=== PATIENT | male | born 1965 | race Caucasian/White ===

== ENCOUNTER → 2016-12-30 | Outpatient (CLI) | payer OTHER ==
--- NOTE | 2016-12-30 08:11 | US ---
EXAMINATION TYPE: US liver DATE OF EXAM: 12/30/2016 7:21 AM COMPARISON: CT abdomen and pelvis October 16, 2015 CLINICAL HISTORY: Chronic Hepatitis B18.2. Cholecystectomy EXAM MEASUREMENTS: Liver Length: 19.9 cm Gallbladder Wall: Surgically absent CBD: 1.1 cm Right Kidney: 11.4 x 4.4 x 4.4 cm TECHNOLOGIST IMPRESSION: Pancreas: Obscured by overlying bowel gas Liver: enlarged, attenuating Gallbladder: Surgically absent CBD: dilated Right Kidney: no evidence of hydronephrosis or mass Pancreas is obscured by overlying bowel gas on single image saved. Visualized liver is heterogeneousl y hyperechoic in appearance without intrahepatic ductal dilatation. Evaluation for focal masses is li mited due to the heterogeneity. CBD 11 mm is minimally dilated for patient after cholecystectomy. Thi s is noted slightly more prominent versus CT measuring 6 mm on coronal image 41. Gallbladder surgical ly absent. No hydronephrosis is seen on limited images of right kidney. IMPRESSION: Heterogeneity of liver could reflect product of diffuse fatty infiltration or known under lying hepatocellular disease. There is new mild to minimal extrahepatic biliary dilatation noted. Nee d to further investigate by ERCP/MRCP should be based on clinical and lab correlation.
== END | disposition home or self-care (01) ==
LOC: RADUSWWP 07:02
PROVIDERS: ATTEND Internal Medicine Gastroenterology
DX: B18.2 Chronic viral hepatitis C (principal); K82.8 Other specified diseases of gallbladder
CPT/HCPCS: 76705

== ENCOUNTER 2017-06-14 16:41 | Inpatient (IN) | payer MEDICAID, OTHER ==
--- NOTE | 2017-06-14 17:16 | ED ---
General Adult HPI - General Chief complaint: Psychiatric Symptoms Stated complaint: Mental Health Time Seen by Provider: 06/14/17 16:51 Source: patient, EMS, RN notes reviewed, old records reviewed Mode of arrival: EMS Limitations: no limitations - History of Present Illness Initial comments: This is a 51-year-old male out of the ER for evaluation. Patient comes in for evaluation of psychiatric and mental health. Patient's petition by police for psychiatric evaluation and treatment, patient got a fight with girlfriend, significant other, [place] and attempted [place] then decided he no longer wanted to but does admit that he is still suicidal - Related Data Home Medications Medication Instructions Recorded Confirmed Lisinopril 40 mg PO BID 07/25/15 06/14/17 Previous Rx's Medication Instructions Recorded Acetaminophen Tab [Tylenol] 650 mg PO Q4HR PRN tab 06/18/17 Aspirin 81 mg PO DAILY 06/18/17 Carvedilol [Coreg] 3.125 mg PO BID-W/MEALS tab 06/18/17 Ibuprofen [Motrin] 800 mg PO TID PRN tab 06/18/17 Mag Hydrox/Al Hydrox/Simeth 30 ml PO Q4HR PRN dose 06/18/17 [Maalox] Magnesium Hydroxide [Milk of 2,400 mg PO DAILY PRN dose 06/18/17 Magnesia Concentrate] OLANZapine [ZyPREXA] 7.5 mg PO HS #14 tablet 06/18/17 cloNIDine HCL [Catapres] 0.1 mg PO TID #0 tab 06/18/17 Allergies Allergy/AdvReac Type Severity Reaction Status Date / Time No Known Allergies Allergy Verified 06/14/17 20:35 Review of Systems ROS Statement: Those systems with pertinent positive or pertinent negative responses have been documented in the HPI. ROS Other: All systems not noted in ROS Statement are negative. Past Medical History Past Medical History: Liver Disease, Myocardial Infarction (PR), Renal Disease Additional Past Medical History / Comment(s): 07/25/15 Pt presented to [facility] ER having taken a shower and then feeling dizzy and had L arm numbness and chest pain. He has hx of drug abuse and had used cocaine same day as admission. He had chest pain-L side and SOB and diaphoresis. Pt also states he has had R sided abdominal pain for about 1 1/2 weeks. He is being admitted with clinical impression of NSTEMI and cocaine abuse. Other HX: Pt states he had another PR with drug use in 2009 and was in [facility] for this. Pt has chronic back pain, spinal stenosis, DDD, sinusitis, Hepatitis C 2000-liver enzymes normal, peptic ulcer 1999, r kidney calculus x 2. Last Myocardial Infarction Date:: ?2009 History of Any Multi-Drug Resistant Organisms: None Reported Additional Past Surgical History / Comment(s): Partial r apical lobectomy for bleb at age 18 yrs. 2002 repair ligament LFA after self injury, 2013 Exploratory laparotomy removal foreign body after self injury, pain clinic procedures for back pain. Past Anesthesia/Blood Transfusion Reactions: No Reported Reaction Additional Past Anesthesia/Blood Transfusion Reaction / Comment(s): Pt states he has never received blood. Past Psychological History: Depression Smoking Status: Never smoker Past Alcohol Use History: Abuse Past Drug Use History: Cocaine, Heroin, Methamphetamine - Past Family History Father Family Medical History: COPD Additional Family Medical History / Comment(s): Father at 71 yrs of age. Mother Family Medical History: Cancer Additional Family Medical History / Comment(s): Mother had breast cancer with mets and of this at 67yrs of age. General Exam Limitations: no limitations General appearance: alert, in no apparent distress Head exam: Present: atraumatic, normocephalic, normal inspection Eye exam: Present: normal appearance, PERRL, EOMI. Absent: scleral icterus, conjunctival injection, periorbital swelling ENT exam: Present: normal exam, mucous membranes moist Neck exam: Present: normal inspection. Absent: tenderness, meningismus, lymphadenopathy Respiratory exam: Present: normal lung sounds bilaterally. Absent: respiratory distress, wheezes, rales, rhonchi, stridor Cardiovascular Exam: Present: regular rate, normal rhythm, normal heart sounds. Absent: systolic murmur, diastolic murmur, rubs, gallop, clicks GI/Abdominal exam: Present: soft, normal bowel sounds. Absent: distended, tenderness, guarding, rebound, rigid Extremities exam: Present: normal inspection, full ROM, normal capillary refill. Absent: tenderness, pedal edema, joint swelling, calf tenderness Back exam: Present: normal inspection Neurological exam: Present: alert, oriented X3, CN II-XII intact Psychiatric exam: Present: normal affect, normal mood Skin exam: Present: warm, dry, intact, normal color. Absent: rash Course Vital Signs 06/14/17 06/14/17 16:49 19:08 Temperature 96.9 F L 98.3 F Pulse Rate 69 68 Respiratory 20 16 Rate Blood Pressure 133/82 128/75 O2 Sat by Pulse 97 97 Oximetry - Reevaluation(s) Reevaluation #1: 06/14/17 17:33 Patient's medically clear for psychiatric evaluation Medical Decision Making - Medical Decision Making 51 male who is seen and evaluated with psychiatry, patient to be admitted for psychiatric evaluation and treatment - Lab Data Result diagrams: 06/15/17 08:44 06/15/17 08:44 Lab Results 06/14/17 Range/Units 16:51 Urine Opiates Screen Detected H (NotDetected) Ur Oxycodone Screen Not Detected (NotDetected) Urine Methadone Screen Not Detected (NotDetected) Ur Propoxyphene Screen Not Detected (NotDetected) Ur Barbiturates Screen Not Detected (NotDetected) U Tricyclic Antidepress Not Detected (NotDetected) Ur Phencyclidine Scrn Not Detected (NotDetected) Ur Amphetamines Screen Detected H (NotDetected) U Methamphetamines Scrn Detected H (NotDetected) U Benzodiazepines Scrn Detected H (NotDetected) Urine Cocaine Screen Detected H (NotDetected) U Marijuana (THC) Screen Not Detected (NotDetected) Disposition Clinical Impression: Cocaine abuse, Acute anxiety, Depression Disposition: TRANSFER TO PSYCH HOSP/UNIT Condition: Fair
[2017-06-14] MEDS ORDERED: MAG HYDROX/AL HYDROX/SIMETH 30 ML CUP PO PRN (20:23)
[2017-06-14] MEDS ORDERED: MAGNESIUM HYDROXIDE 2,400 MG/10 ML CUP PO PRN (20:23)
[2017-06-14] MEDS ORDERED: LORazepam 1 MG TAB PO PRN (20:23)
[2017-06-14] MEDS ORDERED: HYDROcodone/APAP 5-325MG 1 EACH TAB PO PRN (20:29)
[2017-06-14] MEDS ORDERED: LISINOPRIL 20 MG TAB PO SCH (21:00)
--- NOTE | 2017-06-14 22:02 | P.HPIM ---
History of Present Illness H&P Date: 06/14/17 Chief Complaint: Suicidal ideations 51 years old gentleman with history of polysubstance abuse with frequent suicidal ideations and attempts, hepatitis C and [place], who was brought to the ED after a suicidal attempt. He fought with his girlfriend and [place] to kill himself but he decided to come back, however continued to have suicidal thoughts. His last cocaine use was 2-3 days ago. He denied recent fevers, abdominal pain, coughing, falls or head trauma. He mentioned that he has been homeless for the past 4-5 days at least. He has not been taking his medications including his cardiac medications. In the ED, his vital signs were unremarkable, UDS was positive for opioids, amphetamines, benzos and cocaine. He was admitted to the psychiatric unit. Review of Systems Constitutional: Patient reports no fever, no chills, no weight changes, no change in appetite Eyes: Patient reports no double vision, no visual changes ENT: Patient reports no rhinorrhea, no post nasal drip, no sore throat Cardiovascular: Patient reports no chest, no edema, no palpitations, no syncope , no orthopnea, no paroxysmal nocturnal dyspnea. Respiratory: Patient reports no dyspnea, no cough, no wheeze Gastrointestinal: Patient reports no nausea, no vomiting, no constipation, no diarrhea Genitourinary: Patient reports no dysuria, no urinary frequency, no hematuria. Musculoskeletal: Patient reports right foot pain at the dorsal aspect for 2 weeks. Patient reports no muscular pain. Psychiatric: Patient reports suicidal ideations. Patient reports no changes in memory. Endocrine: Patient reports no thirst, no polyuria, no cold intolerance, no heat intolerance. Neurological: Patient reports no unusual paresthesias, no seizures, no paresis , no paralysis, no facila droop, no headache. Heme/Lymphatic: Patient reports no easy bruising, no bleeding tendency, no lymphadenopathy. Allergic/ Immunologic: Patient reports no recent allergic reactions or immunologic history. Skin: Patient reports no rashes or unusual lesions. Past Medical History Past Medical History: Liver Disease, Myocardial Infarction ([place]), Renal Disease Additional Past Medical History / Comment(s): 07/25/15 Pt presented to [facility] ER having taken a shower and then feeling dizzy and had L arm numbness and chest pain. He has hx of drug abuse and had used cocaine same day as admission. He had chest pain-L side and SOB and diaphoresis. Pt also states he has had R sided abdominal pain for about 1 1/2 weeks. He is being admitted with clinical impression of NSTEMI and cocaine abuse. Other HX: Pt states he had another [place] with drug use in 2008 and was in [facility] for this. Pt has chronic back pain, spinal stenosis, DDD, sinusitis, Hepatitis C 2000-liver enzymes normal, peptic ulcer 1999, r kidney calculus x 2. Ventral hernia. Diverticulosis. Systolic CHF with EF of 40-45%. Fatty liver. Hypertension Last Myocardial Infarction Date:: ?2008 History of Any Multi-Drug Resistant Organisms: None Reported Additional Past Surgical History / Comment(s): Partial r apical lobectomy for bleb at age 18 yrs. 2002 repair ligament LFA after self injury, 2013 Exploratory laparotomy removal foreign body after self injury, pain clinic procedures for back pain. Cholecystectomy Past Anesthesia/Blood Transfusion Reactions: No Reported Reaction Additional Past Anesthesia/Blood Transfusion Reaction / Comment(s): Pt states he has never received blood. Smoking Status: Never smoker - Past Family History Father Family Medical History: COPD Additional Family Medical History / Comment(s): Father at 71 yrs of age. Mother Family Medical History: Cancer Additional Family Medical History / Comment(s): Mother had breast cancer with mets and of this at 67yrs of age. Medications and Allergies Home Medications Medication Instructions Recorded Confirmed Type Lisinopril 40 mg PO BID 07/25/15 06/14/17 History ALPRAZolam [ALPRAZolam] 1 mg PO TID 10/16/15 06/14/17 History HYDROcodone/APAP 10-325MG [[place] 1 tab PO TID 06/14/17 06/14/17 History 10-325] Allergies Allergy/AdvReac Type Severity Reaction Status Date / Time No Known Allergies Allergy Verified 06/14/17 20:35 Physical Exam Vitals: Vital Signs Temp Pulse Pulse Resp BP BP Pulse Ox 06/14/17 19:40 98.5 F 62 16 120/76 06/14/17 19:08 98.3 F 68 16 128/75 97 06/14/17 16:49 96.9 F L 69 20 133/82 97 Intake and Output 09/02/17 09/02/17 09/02/17 06:59 14:59 22:59 Other: Weight 83 kg Patient Weight 06/15/17 06:59 Weight 83 kg Constitutional: No acute distress, conversant, pleasant Eyes: Anicteric sclerae, moist conjunctiva, no lid-lag PERRLA ENMT: NC/AT Oropharynx clear, no erythema, exudates Neck: Supple, FROM, no masses, or JVD No carotid bruits No thyromegaly Lungs: Clear to auscultation Clear to percussion Normal respiratory effort, no accessory muscle use Cardiovascular: Heart regular in rate and rhythm, No murmurs, gallops, or rubs No peripheral edema Abdominal: Soft Slight diffuse tenderness, no guarding, rebound or rigidity Abdomen moving with respiration Normoactive bowel sounds No hepatomegaly, No splenomegaly No palpable mass Skin: Normal temperature, tone, texture, turgor No induration No subcutaneous nodules No rash, lesions No ulcers Extremities: No digital cyanosis No clubbing Pedal pulses intact and symmetrical Radial pulses intact and symmetrical Normal gait and station Tenderness over the dorsum of the right foot with slight swelling without signs of cellulitis, patient however is able to walk but with limitations with putting weight on the right foot Psychiatric: Alert and oriented to person, place and time Appropriate affect Intact judgement Neuro: Muscles Strength 5/5 in all 4 extremities Sensation to light touch grossly present throughout Cranial nerves II-XII grossly intact No focal sensory deficits Results Labs: Abnormal Lab Results - Last 24 Hours (Table) 06/14/17 Range/Units 16:51 Urine Opiates Screen Detected H (NotDetected) Ur Amphetamines Screen Detected H (NotDetected) U Methamphetamines Scrn Detected H (NotDetected) U Benzodiazepines Scrn Detected H (NotDetected) Urine Cocaine Screen Detected H (NotDetected) Thrombosis Risk Factor Assmnt - DVT/VTE Prophylaxis DVT/VTE Prophylaxis: Pharmacologic Prophylaxis ordered - Choose All That Apply Each Factor Represents 1 point: Age 41-60 years, Obesity (BMI >25) Thrombosis Risk Factor Assessment Total Risk Factor Score: 2 Thrombosis Risk Factor Assessment Level: Low Risk Assessment and Plan Plan: #Depression and suicidal ideations -Management per the psych team -Recurrent problem -Awaiting UA, UDS as reported above -Pending TSH #Polysubstance abuse -Including cocaine, amphetamines mainly -Management deferred to the psych team -lineworker involvement would be recommended to help in providing resources for cessation -Patient was encouraged to stop polysubstance abuse -Patient is not currently in withdrawal #Right foot pain -At the dorsum, no recent falls, has been there for last 2 weeks, causing impaired walking -Pending x-ray -No signs of cellulitis -Pain control with [place] #Chronic back pain -Continue home [place] #Diffuse vague abdominal tenderness History of hepatitis C and fatty liver -No nausea or vomiting, but reported constipation -Bowel regimen -Defibrillator imaging for now, awaiting CBC and CMP -Reexamine the morning to reassess need for imaging #Myocardial infarction history, with EF of 40-45% and history of systolic CHF -Patient is not taking cardiac medications, however he mentioned that his physician put him on some medications -I started him on aspirin, Coreg, he is not on diuretics -No ACS or signs of decompensated heart failure currently #Essential hypertension -Currently not in hypertensive urgency -He is on lisinopril 40 mg at home but he is not taking it -Started lisinopril 5 mg as his blood pressure is in the 120s #Social status and placement -Recommend social services aide consult -Patient is currently homeless Code is full code DVT prophylaxis with subcu heparin Time with Patient: Greater than 30
[2017-06-14] MEDS: HYDROcodone/APAP 5-325MG 1 EACH TAB PO SCH (22:59)
[2017-06-14] MEDS: ASPIRIN 81 MG CHEW PO SCH (22:59)
--- NOTE | 2017-06-15 07:26 | XR ---
EXAMINATION TYPE: XR foot limited RT DATE OF EXAM: 06/14/2017 CLINICAL HISTORY: Right foot pain. TECHNIQUE: Frontal and lateral images of the right foot are obtained. COMPARISON: None FINDINGS: There is no acute fracture/dislocation evident in the right foot. Flexion or hammertoe typ e appearance of toes is noted. There is small superior calcaneal spur. The joint spaces in the right foot appear within normal limits. The overlying soft tissue appears unremarkable. IMPRESSION: There is flexion in toes and small superior calcaneal spur noted.
[2017-06-15] MEDS ORDERED: HEPARIN SODIUM,PORCINE 5,000 UNIT/ML 1 ML VIAL SQ SCH (08:00)
[2017-06-15] MEDS: ASPIRIN 81 MG CHEW PO SCH (08:18)
[2017-06-15] MEDS: CARVEDILOL 3.125 MG TAB PO SCH ×2 (08:18→18:07)
[2017-06-15] MEDS: HYDROcodone/APAP 5-325MG 1 EACH TAB PO SCH (08:46)
[2017-06-15] MEDS ORDERED: LISINOPRIL 5 MG TAB PO SCH (09:00)
[2017-06-15 09:16] LABS: Basophils % (A) 0 %; CH 32.5; CHCM 34.8; Eosinophils # (A) 0.2 k/uL (0-0.7); Eosinophils % (A) 2 %; HCT 43.8 % (39.0-53.0); HDW 2.89; HGB 15.3 gm/dL (13.0-17.5); Luc # (Auto) 0.16; Luc % (Auto) 2; Lymphocytes # (A) 2.2 k/uL (1.0-4.8); Lymphocytes % (A) 30 %; MCH 32.9 pg (25.0-35.0); Mean Platelet Volume 7.6; Monocytes # (A) 0.3 k/uL (0-1.0); Monocytes % (A) 4 %; Neutrophils # (A) 4.6 k/uL (1.3-7.7); Neutrophils % (A) 62 %; RBC 4.66 m/uL (4.30-5.90); RDW 12.7 % (11.5-15.5); WBC 7.5 k/uL (3.8-10.6); WBC (Perox) 7.44
[2017-06-15 09:28] LABS: ALT 102 U/L (21-72); AST 99 U/L (17-59); Alkaline Phosphatase 81 U/L (38-126); Anion Gap 10 mmol/L; Bilirubin, Delta 0.3 mg/dL (0.0-0.2); Blood Urea Nitrogen 19 mg/dL (9-20); Calcium 9.4 mg/dL (8.4-10.2); Carbon Dioxide 26 mmol/L (22-30); Chloride 106 mmol/L (98-107); Glucose 203 mg/dL (74-99); Non-African American GFR(MDRD) >60 (>60 ml/min/1.73 sqM); Potassium 4.7 mmol/L (3.5-5.1); Sodium 142 mmol/L (137-145); Total Bilirubin 0.9 mg/dL (0.2-1.3); Total Protein 6.9 g/dL (6.3-8.2)
[2017-06-15] MEDS: ACETAMINOPHEN TAB 325 MG TAB PO PRN (12:35)
[2017-06-15] MEDS: cloNIDine HCL 0.1 MG TAB PO SCH ×3 (12:36→21:44)
[2017-06-15] MEDS: OLANZapine 5 MG TAB PO SCH ×2 (15:34→21:44)
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
[2017-06-16] MEDS: OLANZapine 5 MG TAB PO SCH ×3 (09:05→21:08)
[2017-06-16] MEDS: CARVEDILOL 3.125 MG TAB PO SCH ×2 (09:05→17:06)
[2017-06-16] MEDS: ASPIRIN 81 MG CHEW PO SCH (09:05)
[2017-06-16] MEDS: cloNIDine HCL 0.1 MG TAB PO SCH ×3 (09:05→21:42)
[2017-06-16] MEDS: ACETAMINOPHEN TAB 325 MG TAB PO PRN ×2 (09:41→16:18)
[2017-06-16 11:18] LABS: Appearance,Urine Clear (Clear); Bilirubin,Urine Negative (Negative); Glucose,Urine (UA) Trace (Negative); Ketones,Urine Negative (Negative); Leukocyte Esterase,Urine Negative (Negative); Nitrite,Urine Negative (Negative); Protein,Urine Trace (Negative); Specific Gravity,Urine 1.026 (1.001-1.035); UA Billing (MACRO vs. MICRO) CHEM; Urobilinogen,Urine <2.0 mg/dL (<2.0)
[2017-06-16] MEDS: IBUPROFEN 800 MG TAB PO PRN (13:08)
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
[2017-06-17] MEDS: ASPIRIN 81 MG CHEW PO SCH (08:15)
[2017-06-17] MEDS: CARVEDILOL 3.125 MG TAB PO SCH ×2 (08:16→17:20)
[2017-06-17] MEDS: cloNIDine HCL 0.1 MG TAB PO SCH ×3 (08:16→21:22)
[2017-06-17] MEDS: IBUPROFEN 800 MG TAB PO PRN ×2 (08:17→15:18)
[2017-06-17] MEDS: OLANZapine 5 MG TAB PO SCH ×2 (08:45→15:18)
[2017-06-17] MEDS: ACETAMINOPHEN TAB 325 MG TAB PO PRN (17:21)
--- NOTE | 2017-06-17 20:48 | P.PN ---
Subjective Principal diagnosis: 1. Suicide attempt, aborted 2. Stimulant use disorder, cocaine and methamphetamine type severe Patient is a 51-year-old male who presents to the hospital after an aborted suicide attempt with plan to drown himself in a local river. Patient states that he put his body in the water up to his torso and then "chickened out " and contacted local police asking for help. Patient admits to being intoxicated on cocaine and methamphetamines at the time of the event and had recently had a fight with his ex-. Today patient is engaged during interview and has planned to discharge to rehab although he is uncertain where and is considering both local options and a facility [id number] in [place]. Patient states that he regrets his actions and has no desire to kill himself today. Patient admits to 1 prior hospitalization with similar SA where he was also intoxicated on cocaine and methamphetamines which he has done on-and-off for the last 10 years with the longest period of sobriety of 20 months while he was on probation. Patient's plan is discharge home to live with his friend and friend's boyfriend whom he has known for the last 4 years prior to going to rehab. At this time patient denies suicidal ideations, homicidal ideations, auditory or visual hallucinations, and exhibits no signs of psychosis or maris. At conclusion of interview patient reported that he is scheduled for outpatient surgery on June 19, review of his medical record is significant for a bone spur that was diagnosed by x-ray during this hospital course. Objective - Vital Signs Vital signs: Vital Signs Temp 97.9 F 06/17/17 06:59 Pulse 58 L 06/17/17 17:20 Resp 16 06/17/17 17:20 BP 123/84 06/17/17 17:20 Pulse Ox 97 06/14/17 19:08 - Psychiatric Psychiatric Comment(s): MENTAL STATUS EXAM: Appearance: Alert, well-groomed, dressed in appropriate garb for unit, steady gait Behavior: No psychomotor agitation or psychomotor retardation, fair eye contact Attitude: Cooperative Speech: Normal rate, rhythm, articulation, and fluency; primary language: Polish Mood: Euthymic (pretty good) Affect: Appropriate, mood congruent, full range Thought processes: Linear, organized Thought content: Patient does not appear to be responding to internal stimuli, patient denies auditory and visual hallucinations, no signs of overt psychosis Insight: Fair Judgment: Historically poor at present fair to good Cognitive: Oriented to all 4 spheres - Labs CBC & Chem 7: 06/15/17 08:44 06/15/17 08:44 Assessment and Plan Plan: ASSESSMENT: 1. Suicide attempt, aborted 2. Stimulant use disorder methamphetamine and cocaine, severe PLAN: 1. Continue hospitalization 2. Decrease Zyprexa to 7.5 mg by mouth every daily at bedtime 3. Contact family to assess the viability of patient flying to [place] to attend [facility] for inpatient rehab
[2017-06-17] MEDS ORDERED: OLANZapine 2.5 MG TAB PO SCH (21:00)
[2017-06-18 07:19] VITALS: BP 106/56; PULSE 51; RESP 16; TEMP 98.8
[2017-06-18] MEDS: ASPIRIN 81 MG CHEW PO SCH (08:47)
[2017-06-18] MEDS: IBUPROFEN 800 MG TAB PO PRN (08:47)
[2017-06-18] MEDS: cloNIDine HCL 0.1 MG TAB PO SCH (08:47)
[2017-06-18] MEDS: CARVEDILOL 3.125 MG TAB PO SCH (08:48)
== END 2017-06-18 14:57 | disposition home or self-care (01) | DRG 885 ==
LOC: EC 16:41 → 3MHU 18:38
PROVIDERS: ADMIT Psychiatry & Neurology Psychiatry; ATTEND Psychiatry & Neurology Psychiatry
DX: F33.2 Major depressive disorder, recurrent severe without psychotic features (principal); I11.0 Hypertensive heart disease with heart failure; R45.851 Suicidal ideations; I50.22 Chronic systolic (congestive) heart failure; F11.23 Opioid dependence with withdrawal; M79.671 Pain in right foot; F14.10 Cocaine abuse, uncomplicated; F43.10 Post-traumatic stress disorder, unspecified; G89.29 Other chronic pain; I25.2 Old myocardial infarction; K59.00 Constipation, unspecified; K76.0 Fatty (change of) liver, not elsewhere classified; M77.9 Enthesopathy, unspecified; Z59.0 Homelessness; Z79.82 Long term (current) use of aspirin; Z79.899 Other long term (current) drug therapy; Z81.1 Family history of alcohol abuse and dependence; Z87.11 Personal history of peptic ulcer disease; Z87.442 Personal history of urinary calculi; M54.9 Dorsalgia, unspecified
CPT/HCPCS: 80053; 80306; 81003; 82075; 82248; 83690; 84439; 84443; 84481; 85025; 99285

== ENCOUNTER 2017-06-25 21:31 | Emergency (ER) | payer OTHER ==
--- NOTE | 2017-06-25 21:41 | ED ---
Alcohol HPI - General Stated Complaint: ETOH Time Seen by Provider: 06/25/17 21:33 Source: patient, EMS Mode of arrival: EMS Limitations: altered mental status - History of Present Illness Initial Comments: This patient is a 51-year-old man brought to be valid for alcohol intoxication. Patient was reportedly found extremely intoxicated in public. When first responders arrived he appeared very intoxicated and cannot be left alone. The patient denies recent trauma. He denies any complaints. He states that he drinks "a lot." MD Complaint: alcohol intoxication Last Drink: just [employer] Recent Trauma: No Associated Symptoms: denies other symptoms Treatments Prior to Arrival: none Chronic Alcohol Use: Yes - Related Data Home Medications Medication Instructions Recorded Confirmed Lisinopril 40 mg PO BID 07/25/15 06/25/17 Previous Rx's Medication Instructions Recorded Acetaminophen Tab [Tylenol] 650 mg PO Q4HR PRN tab 06/18/17 Aspirin 81 mg PO DAILY 06/18/17 Carvedilol [Coreg] 3.125 mg PO BID-W/MEALS tab 06/18/17 Ibuprofen [Motrin] 800 mg PO TID PRN tab 06/18/17 Mag Hydrox/Al Hydrox/Simeth 30 ml PO Q4HR PRN dose 06/18/17 [Maalox] Magnesium Hydroxide [Milk of 2,400 mg PO DAILY PRN dose 06/18/17 Magnesia Concentrate] OLANZapine [ZyPREXA] 7.5 mg PO HS #14 tablet 06/18/17 cloNIDine HCL [Catapres] 0.1 mg PO TID #0 tab 06/18/17 Allergies Allergy/AdvReac Type Severity Reaction Status Date / Time No Known Allergies Allergy Verified 06/25/17 21:40 Review of Systems ROS Statement: Those systems with pertinent positive or pertinent negative responses have been documented in the HPI. ROS Other: All systems not noted in ROS Statement are negative. Respiratory: Denies: cough, dyspnea Cardiovascular: Denies: chest pain, palpitations Gastrointestinal: Denies: abdominal pain, vomiting, diarrhea Musculoskeletal: Denies: back pain Neurological: Denies: headache Past Medical History Past Medical History: Liver Disease, Myocardial Infarction (DC), Renal Disease Additional Past Medical History / Comment(s): 07/25/15 Pt presented to [facility] ER having taken a shower and then feeling dizzy and had L arm numbness and chest pain. He has hx of drug abuse and had used cocaine same day as admission. He had chest pain-L side and SOB and diaphoresis. Pt also states he has had R sided abdominal pain for about 1 1/2 weeks. He is being admitted with clinical impression of NSTEMI and cocaine abuse. Other HX: Pt states he had another DC with drug use in 2008 and was in [facility] for this. Pt has chronic back pain, spinal stenosis, DDD, sinusitis, Hepatitis C 2000-liver enzymes normal, peptic ulcer 1999, r kidney calculus x 2. Last Myocardial Infarction Date:: ?2008 History of Any Multi-Drug Resistant Organisms: None Reported Additional Past Surgical History / Comment(s): Partial r apical lobectomy for bleb at age 18 yrs. 2002 repair ligament LFA after self injury, 2013 Exploratory laparotomy removal foreign body after self injury, pain clinic procedures for back pain. Past Anesthesia/Blood Transfusion Reactions: No Reported Reaction Additional Past Anesthesia/Blood Transfusion Reaction / Comment(s): Pt states he has never received blood. Past Psychological History: Depression Smoking Status: Never smoker Past Alcohol Use History: Abuse Past Drug Use History: Cocaine, Heroin, Methamphetamine - Past Family History Father Family Medical History: COPD Additional Family Medical History / Comment(s): Father at 71 yrs of age. Mother Family Medical History: Cancer Additional Family Medical History / Comment(s): Mother had breast cancer with mets and of this at 67yrs of age. General Exam General appearance: alert, in no apparent distress, appears intoxicated Head exam: Present: atraumatic, normocephalic Eye exam: Present: normal appearance, PERRL, EOMI, nystagmus. Absent: scleral icterus, conjunctival injection Neck exam: Present: normal inspection, full ROM. Absent: tenderness Respiratory exam: Present: normal lung sounds bilaterally. Absent: respiratory distress, wheezes, rales, rhonchi, stridor Cardiovascular Exam: Present: regular rate, normal rhythm, normal heart sounds. Absent: systolic murmur, diastolic murmur, rubs, gallop GI/Abdominal exam: Present: soft. Absent: tenderness, guarding, rebound, rigid Back exam: Present: normal inspection. Absent: vertebral tenderness Neurological exam: Present: alert, other (Mild dysarthria and mild ataxia). Absent: motor sensory deficit Skin exam: Present: warm, dry, intact, normal color. Absent: rash Course Vital Signs 06/25/17 21:33 Temperature 97.0 F L Pulse Rate 83 Respiratory 16 Rate Blood Pressure 125/85 O2 Sat by Pulse 96 Oximetry Procedures - Restraint - Face to Face Restraint Occurrence 1 Patient's Immediate Situation: Endangers self safety, Endangers staff safety Patient's Reaction to the Intervention: Belligerent, Suspicious Need to Continue or Terminate Restraint or Seclusion: Continue Face to Face Eval of Restraint Date: 06/25/17 Face to Face Eval of Restraint Time: 22:10 Disposition Clinical Impression: Alcoholic intoxication Disposition: HOME SELF-CARE Condition: Fair Instructions: Alcohol Intoxication (ED) Referrals: None,Stated [Primary Care Provider] - 1-2 days
[2017-06-26 05:12] VITALS: BP 139/83; PULSE 72; RESP 18; TEMP 97.9
== END 2017-06-26 05:11 | disposition home or self-care (01) ==
LOC: EC 21:31
DX: F10.129 Alcohol abuse with intoxication, unspecified (principal); H55.00 Unspecified nystagmus; I25.2 Old myocardial infarction; Z79.899 Other long term (current) drug therapy
CPT/HCPCS: 82075; 99285

== ENCOUNTER 2017-06-27 00:58 | Emergency (ER) | payer OTHER ==
--- NOTE | 2017-06-27 02:24 | ED ---
General Adult HPI - General Chief complaint: Alcohol Stated complaint: revisit-detox Time Seen by Provider: 06/27/17 01:35 Source: patient, RN notes reviewed, old records reviewed Mode of arrival: ambulatory Limitations: no limitations - History of Present Illness Initial comments: This is a 51-year-old male presents emergency Department chief complaint of needing help with detox. He reports that he states he needs to be back on his psychiatric medications. He states that he has been off of them for the past 2 weeks. He reports that he was kicked out of his house by his 2 weeks ago. He states these been on the street, drinking alcohol and using crack cocaine. Patient reports that her last use of cocaine was at 9 PM. He last drink 10 PM. Patient states that today he did fall on his lower back. Denies any injuries to his head or neck. Patient reports that he is here searching for some help and resources to get back on the right path. Patient states that earlier should he did have some suicidal thoughts. - Related Data Previous Rx's Medication Instructions Recorded chlordiazePOXIDE HCl [Librium] 10 mg PO TID #10 capsule 06/27/17 Allergies Allergy/AdvReac Type Severity Reaction Status Date / Time No Known Allergies Allergy Verified 06/27/17 01:04 Review of Systems ROS Statement: Those systems with pertinent positive or pertinent negative responses have been documented in the HPI. ROS Other: All systems not noted in ROS Statement are negative. Past Medical History Past Medical History: Liver Disease, Myocardial Infarction ([place]), Renal Disease Additional Past Medical History / Comment(s): 07/25/15 Pt presented to [facility] ER having taken a shower and then feeling dizzy and had L arm numbness and chest pain. He has hx of drug abuse and had used cocaine same day as admission. He had chest pain-L side and SOB and diaphoresis. Pt also states he has had R sided abdominal pain for about 1 1/2 weeks. He is being admitted with clinical impression of NSTEMI and cocaine abuse. Other HX: Pt states he had another [place] with drug use in 2008 and was in [facility] for this. Pt has chronic back pain, spinal stenosis, DDD, sinusitis, Hepatitis C 2000-liver enzymes normal, peptic ulcer 1999, r kidney calculus x 2. Last Myocardial Infarction Date:: ?2008 History of Any Multi-Drug Resistant Organisms: None Reported Additional Past Surgical History / Comment(s): Partial r apical lobectomy for bleb at age 18 yrs. 2002 repair ligament LFA after self injury, 2013 Exploratory laparotomy removal foreign body after self injury, pain clinic procedures for back pain. Past Anesthesia/Blood Transfusion Reactions: No Reported Reaction Additional Past Anesthesia/Blood Transfusion Reaction / Comment(s): Pt states he has never received blood. Past Psychological History: Depression Smoking Status: Never smoker Past Alcohol Use History: Abuse, Daily Past Drug Use History: Cocaine, Heroin, Methamphetamine - Past Family History Father Family Medical History: COPD Additional Family Medical History / Comment(s): Father at 71 yrs of age. Mother Family Medical History: Cancer Additional Family Medical History / Comment(s): Mother had breast cancer with mets and of this at 67yrs of age. General Exam - General Exam Comments Initial Comments: 51-year-old male. No distress. Limitations: no limitations General appearance: alert, in no apparent distress Head exam: Present: atraumatic, normocephalic, normal inspection Eye exam: Present: normal appearance, PERRL, EOMI. Absent: scleral icterus, conjunctival injection, periorbital swelling ENT exam: Present: normal exam, mucous membranes moist Neck exam: Present: normal inspection Respiratory exam: Present: normal lung sounds bilaterally. Absent: respiratory distress, wheezes, rales, rhonchi, stridor Cardiovascular Exam: Present: regular rate, normal rhythm, normal heart sounds. Absent: systolic murmur, diastolic murmur, rubs, gallop, clicks GI/Abdominal exam: Present: soft, normal bowel sounds. Absent: distended, tenderness, guarding, rebound, rigid Extremities exam: Present: normal inspection, full ROM, normal capillary refill. Absent: tenderness, pedal edema, joint swelling, calf tenderness Back exam: Present: normal inspection Course Vital Signs 06/27/17 06/27/17 01:02 04:54 Temperature 98.8 F 97.9 F Pulse Rate 74 95 Respiratory 20 18 Rate Blood Pressure 167/100 130/91 O2 Sat by Pulse 97 98 Oximetry Medical Decision Making - Medical Decision Making 51-year-old male seeking help for drug and alcohol abuse. Patient's blood alcohol level is 0 at this time. Patient actively going through withdrawals. Patient reports he is currently homeless. He states that he would like to speak to the psyche after services, patient feels like he needs to get restarted on his medications. He reports that he has been homeless for 2 weeks. Patient is medically clear for EPS, he did say that he fell on his lower back. Lumbar spine x-ray was obtained and 8 for any acute process. Patient was evaluated by EPS. EPS feels comfortable discharging the patient. Patient was given a referral for outpatient psychiatric services. Patient agrees treatment plan will comply. Return parameters were discussed. - Lab Data Lab Results 06/27/17 Range/Units 02:45 Urine Opiates Screen Not Detected (NotDetected) Ur Oxycodone Screen Not Detected (NotDetected) Urine Methadone Screen Not Detected (NotDetected) Ur Propoxyphene Screen Not Detected (NotDetected) Ur Barbiturates Screen Not Detected (NotDetected) U Tricyclic Antidepress Not Detected (NotDetected) Ur Phencyclidine Scrn Not Detected (NotDetected) Ur Amphetamines Screen Not Detected (NotDetected) U Methamphetamines Scrn Not Detected (NotDetected) U Benzodiazepines Scrn Not Detected (NotDetected) Urine Cocaine Screen Detected H (NotDetected) U Marijuana (THC) Screen Not Detected (NotDetected) Disposition Clinical Impression: Cocaine use, Alcohol abuse Disposition: HOME SELF-CARE Condition: Good Instructions: Alcohol Withdrawal (ED) Additional Instructions: Patient advised to use the medication to help with alcohol withdrawal. Follow- up with all the outpatient services provided. Return to the emergency department if any alarming signs or symptoms occur. Prescriptions: chlordiazePOXIDE HCl [Librium] 10 mg PO TID #10 capsule Referrals: Nonstaff,Physician [Primary Care Provider] - 1-2 days Yesenia Bergeron MD [STAFF PHYSICIAN] - 1-2 days Time of Disposition: 04:34
--- NOTE | 2017-06-27 02:28 | XR ---
EXAM: XR Lumbar Spine, 2 or 3 Views CLINICAL HISTORY: Pain TECHNIQUE: Frontal and lateral views of the lumbar spine. COMPARISON: No relevant prior studies available. FINDINGS: Vertebrae: No acute fracture or traumatic malalignment of the lumbar spine. Disc spaces: Mild degenerative changes. Soft tissues: Unremarkable. Other findings: Evidence of prior cholecystectomy. IMPRESSION: No acute findings.
[2017-06-27 04:55] VITALS: BP 130/91; PULSE 95; RESP 18; TEMP 97.9
== END 2017-06-27 04:55 | disposition home or self-care (01) ==
LOC: EC 00:58
DX: F14.90 Cocaine use, unspecified, uncomplicated (principal); F10.10 Alcohol abuse, uncomplicated; Z59.0 Homelessness; W19.XXXA Unspecified fall, initial encounter
CPT/HCPCS: 72100; 80306; 82075; 99284

== ENCOUNTER 2019-08-18 09:44 | Observation (INO) | payer OTHER ==
[2019-08-18] MEDS ORDERED: SODIUM CHLORIDE 0.9% 1,000 ML IV STA ×2 (10:19)
[2019-08-18] MEDS ORDERED: ASPIRIN 81 MG PO STA (10:19)
--- NOTE | 2019-08-18 10:53 | XR ---
EXAMINATION TYPE: XR chest 2V DATE OF EXAM: 08/18/2019 COMPARISON: 07/25/2015 HISTORY: Shortness of breath TECHNIQUE: Frontal and lateral views of the chest are obtained. FINDINGS: Scattered senescent parenchymal changes noted. Hyperinflation compatible with COPD. No evidence for infiltrate. No evidence for atelectasis. Heart size is stable. Mediastinal structures are stable and grossly unremarkable. No evidence for hilar prominence. Degenerative changes dorsal spine. IMPRESSION: 1. No evidence for acute pulmonary disease.
[2019-08-18 10:57] LABS: Basophils % (A) 0 %; Eosinophils # (A) 0.1 k/uL (0-0.7); Eosinophils % (A) 1 %; HCT 39.9 % (39.0-53.0); HGB 14.2 gm/dL (13.0-17.5); Lymphocytes # (A) 2.3 k/uL (1.0-4.8); Lymphocytes % (A) 25 %; MCH 32.1 pg (25.0-35.0); MCHC 35.6 g/dL (31.0-37.0); MCV 90.1 fL (80.0-100.0); Mean Platelet Volume 7.5; Monocytes # (A) 0.3 k/uL (0-1.0); Monocytes % (A) 4 %; Neutrophils # (A) 6.3 k/uL (1.3-7.7); Neutrophils % (A) 69 %; Platelet Count 121 k/uL (150-450); RBC 4.43 m/uL (4.30-5.90); RDW 12.8 % (11.5-15.5); WBC 9.2 k/uL (3.8-10.6)
--- NOTE | 2019-08-18 10:59 | ED ---
Chest Pain HPI - General Chief Complaint: Chest Pain Stated Complaint: chest pain Time Seen by Provider: 08/18/19 10:19 Source: patient, RN notes reviewed, old records reviewed Mode of arrival: ambulatory Limitations: no limitations - History of Present Illness Initial Comments: Patient is a 54-year-old male with a history of previous drug abuse, who pr esents today with chief complaint of intermittent chest pain for the past week. Today he had 3 episodes and one when she was diaphoretic and complained of some dizziness at that time. He reports that he was walking around when this occurred. Patient states that he is a nonsmoker at this time and he is been clean from drugs for the past 2 years. Patient reports that he has history of hypertension, hyperlipidemia, and diabetes. - Related Data Home Medications Medication Instructions Recorded Confirmed Diclofenac Sodium [Voltaren] 75 mg PO DAILY 08/18/19 08/18/19 Lisinopril 40 mg PO DAILY 08/18/19 08/18/19 Montelukast [Singulair] 10 mg PO DAILY 08/18/19 08/18/19 amLODIPine [Norvasc] 5 mg PO HS 08/18/19 08/18/19 metFORMIN HCL 1,000 mg PO BID 08/18/19 08/18/19 Allergies Allergy/AdvReac Type Severity Reaction Status Date / Time No Known Allergies Allergy Verified 08/18/19 12:05 Review of Systems ROS Statement: Those systems with pertinent positive or pertinent negative responses have been documented in the HPI. ROS Other: All systems not noted in ROS Statement are negative. EKG Findings - EKG Comments: EKG Findings:: EKG performed at 10:06 AM shows a normal sinus rhythm moderate voltage criteria for LVH which may be normal variant. Borderline EKG. Ventricular rate of 71 bpm period. VT interval 174 ms. QS duration is 102 ms. QT QTc is 394/420 ms. Past Medical History Past Medical History: Diabetes Mellitus, Liver Disease, Myocardial Infarction ([place]), Renal Disease Additional Past Medical History / Comment(s): 07/25/15 Pt presented to [facility] ER having taken a shower and then feeling dizzy and had L arm numbness and chest pain. He has hx of drug abuse and had used cocaine same day as admission. He had chest pain-L side and SOB and diaphoresis. Pt also states he has had R sided abdominal pain for about 1 1/2 weeks. He is being admitted with clinical impression of NSTEMI and cocaine abuse. Other HX: Pt states he had another [place] with drug use in 2009 and was in [facility] for this. Pt has chronic back pain, spinal stenosis, DDD, sinusitis, Hepatitis C 2000-liver enzymes normal, peptic ulcer 1999, r kidney calculus x 2. Last Myocardial Infarction Date:: ?2008 History of Any Multi-Drug Resistant Organisms: None Reported Additional Past Surgical History / Comment(s): Partial r apical lobectomy for bleb at age 18 yrs. 2002 repair ligament LFA after self injury, 2013 Exploratory laparotomy removal foreign body after self injury, pain clinic procedures for back pain. Past Anesthesia/Blood Transfusion Reactions: No Reported Reaction Additional Past Anesthesia/Blood Transfusion Reaction / Comment(s): Pt states he has never received blood. Past Psychological History: Depression Smoking Status: Never smoker Past Alcohol Use History: None Reported, Abuse Past Drug Use History: None Reported, Cocaine, Heroin, Methamphetamine - Past Family History Father Family Medical History: COPD Additional Family Medical History / Comment(s): Father at 71 yrs of age. Mother Family Medical History: Cancer Additional Family Medical History / Comment(s): Mother had breast cancer with mets and of this at 67yrs of age. General Exam - General Exam Comments Initial Comments: 54-year-old male. Alert and oriented. No distress. General: Well appearing, well nourished, in no distress. Oriented x 3, normal mood and affect . Ambulating without difficulty. Skin: Good turgor, no rash, unusual bruising or prominent lesions Hair: Normal texture and distribution. HEENT: Head: Normocephalic, atraumatic, no visible or palpable masses, depressions, or scaring. Eyes: Visual acuity intact, conjunctiva clear, sclera non-icteric, EOM intact, PERRL. Ears: EACs clear, TMs translucent & cone of light visualized. hearing intact. Nose: No external lesions, mucosa non-inflamed, septum and turbinates normal Mouth: Mucous membranes moist, no mucosal lesions. Teeth/Gums: No obvious caries or periodontal disease. No gingival inflammation or significant resorption. Pharynx: Mucosa non-inflamed, no tonsillar hypertrophy or exudate Neck: Supple, without lesions, bruits, or adenopathy, thyroid non-enlarged and non-tender Heart: No cardiomegaly or thrills; regular rate and rhythm, no murmur or gallop Lungs: Clear to auscultation and percussion Abdomen: Bowel sounds normal, no tenderness, organomegaly, masses, or hernia Back: Spine normal without deformity or tenderness, no CVA tenderness Extremities: No amputations or deformities, cyanosis, edema or varicosities, peripheral pulses intact Musculoskeletal: Normal gait and station. No misalignment, asymmetry, crepitation, defects, tenderness, masses, effusions, decreased range of motion, instability, atrophy or abnormal strength or tone in the head, neck, spine, ribs, pelvis or extremities. Neurologic: CN 2-12 normal. Sensation to pain, touch, and proprioception normal. DTRs normal in upper and lower extremities. No pathologic reflexes. Limitations: no limitations General appearance: alert, in no apparent distress Course Vital Signs 08/18/19 09:49 Temperature 97.8 F Pulse Rate 72 Respiratory 18 Rate Blood Pressure 156/99 O2 Sat by Pulse 97 Oximetry Chest Pain MDM - MDM Is a 54-year-old male with history of hypertension hyperlipidemia, diabetes. He presents today for concern for chest discomfort with 3 episodes. He reports he was diaphoretic during that time and short of breath on exertion. He hasn't had a cardiac cath in over 5 years. 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 At this time Patient EKG shows no acute changes. Initial troponin test is negative. On reevaluation he states he has no further pain. He was given aspirin emergency department. I discussed the Patient will be admitted for cardiac observation. Disposition Clinical Impression: Unstable angina, Hypertension, Diabetes Disposition: ADMITTED IP TO THIS HOSP Condition: Stable Is patient prescribed a controlled substance at d/c from ED?: No Referrals: Sadiq Lopez MD [Primary Care Provider] - 1-2 days Time of Disposition: 12:21
[2019-08-18 11:09] LABS: INR 1.1 (<1.2); Partial Thromboplastin Time 22.8 sec (22.0-30.0); Prothrombin Time 11.2 sec (9.0-12.0)
[2019-08-18 11:32] LABS: ALT 165 U/L (21-72); AST 88 U/L (17-59); African American GFR (CKD) >90 (>60 ml/min/1.73 sqM); Albumin 3.9 g/dL (3.5-5.0); Alkaline Phosphatase 147 U/L (38-126); Anion Gap 10 mmol/L; Blood Urea Nitrogen 19 mg/dL (9-20); Calcium 9.6 mg/dL (8.4-10.2); Carbon Dioxide 19 mmol/L (22-30); Chloride 112 mmol/L (98-107); Glucose 174 mg/dL (74-99); Magnesium 1.9 mg/dL (1.6-2.3); Non-African American GFR(CKD) >90 (>60 ml/min/1.73 sqM); Potassium 3.9 mmol/L (3.5-5.1); Sodium 141 mmol/L (137-145); Total Bilirubin 0.8 mg/dL (0.2-1.3); Total Protein 7.2 g/dL (6.3-8.2)
[2019-08-18] MEDS ORDERED: NITROGLYCERIN SL TABS 0.4 MG TAB SUBLINGUAL PRN (12:22)
[2019-08-18 16:36] LABS: Glucose,Whole Blood 146 mg/dL (75-99)
[2019-08-18] MEDS: FAMOTIDINE 20 MG TAB PO SCH ×2 (16:37→20:55)
[2019-08-18] MEDS: INSULIN ASPART (NovoLOG) 100 UNIT/ML VIAL SQ SCH ×2 (18:05→20:56)
[2019-08-18 20:24] LABS: Glucose,Whole Blood 145 mg/dL (75-99)
[2019-08-18] MEDS: LISINOPRIL 20 MG TAB PO SCH (20:55)
[2019-08-18] MEDS ORDERED: amLODIPine 5 MG TAB PO SCH (21:00)
--- NOTE | 2019-08-18 23:25 | P.HPIM ---
History of Present Illness H&P Date: 08/18/19 Chief Complaint: Chest pain Patient is a 54-year-old male with a known history of hypertension, diabetes type 2 [id number], history of hepatitis C status post treatment 2 years back, previous history of polysubstance abuse (has been clean for the past 2 years) , history of [place] and renal stones and multiple other medical problems came to ER with complaints of intermittent chest pain for the past 1 week. Chest pain is mainly left retrosternal below pectoralis margin. Patient has been experiencing sharp pains for the past 1 week lasting about 1-2 minutes. Today while he was at work she developed chest pain again and felt diaphoretic and dizzy. Associated with some nausea. No vomiting. No radiation of the pain down the arm. Patient says that she also had elevated blood pressures at that time. Due to the above symptoms patient presented to ER for further evaluation. Denied any pain associated with food intake. history of peptic ulcer disease in the past. Denied any fever or chills. No cough or sputum production. No recent illness. Patient has been taking Motrin on daily basis recently due to spurs in the foot and is out of his prescribed medication diclofenac sodium. Yesterday patient had intra-articular steroid injection to the foot. EKG showed normal sinus rhythm Chest x-ray showed no acute cardiopulmonary process. AST ALT and alk phos slightly elevated. Patient otherwise denied any right upper quadrant pain. Troponin 3 negative. Review of Systems Constitutional: Patient denies any fever or chills . No generalized weakness or weight loss. Abdomen: Patient denied nausea vomiting and diarrhea and abdominal pain. Cardiovascular: Patient denies any chest pain or short of breath no palpitations. Respiratory: patient denied any cough is from production. No shortness of breath Neurologic: Patient denied any numbness or tingling headache. Musculoskeletal: Patient denies any complaints of joint swelling or deformity. Skin: Negative Psychiatric: Negative Endocrine: No heat or cold intolerance. No recent weight gain. Genitourinary: No dysuria or hematuria. All other 14 point ROS negative except the above Past Medical History Past Medical History: Diabetes Mellitus, Hyperlipidemia, Hypertension, Liver Disease, Myocardial Infarction ([place]), Renal Disease Additional Past Medical History / Comment(s): NIDDM type II, hepatitis C which pt states was treated and liver enzymes now normal, [place] in 2008 d/t drug use per pt, chronic renal insufficiency, R sided kidney stone x2, peptic ulcer, migraines, sinusitis. Last Myocardial Infarction Date:: 2008 History of Any Multi-Drug Resistant Organisms: None Reported Past Surgical History: Cholecystectomy Additional Past Surgical History / Comment(s): Partial r apical lobectomy for bleb at age 18 yrs, 2002 repair ligament LFA after self injury, 2013 Exploratory laparotomy removal foreign body after self injury, EGD, cardiac cath in 2014, pain clinic procedures for back pain. Past Anesthesia/Blood Transfusion Reactions: No Reported Reaction Additional Past Anesthesia/Blood Transfusion Reaction / Comment(s): Pt states he has never received blood. Smoking Status: Never smoker - Past Family History Father Family Medical History: COPD Additional Family Medical History / Comment(s): Father at 71 yrs of age. Mother Family Medical History: Cancer Additional Family Medical History / Comment(s): Mother had breast cancer with mets and of this at 67yrs of age. Medications and Allergies Home Medications Medication Instructions Recorded Confirmed Type Diclofenac Sodium [Voltaren] 75 mg PO DAILY 08/18/19 08/18/19 History Lisinopril 40 mg PO BID 08/18/19 08/18/19 History Montelukast [Singulair] 10 mg PO DAILY 08/18/19 08/18/19 History amLODIPine [Norvasc] 5 mg PO HS 08/18/19 08/18/19 History metFORMIN HCL 1,000 mg PO BID 08/18/19 08/18/19 History Allergies Allergy/AdvReac Type Severity Reaction Status Date / Time No Known Allergies Allergy Verified 08/18/19 12:05 Physical Exam Vitals: Vital Signs Temp Pulse Pulse Resp BP BP Pulse Ox 08/18/19 14:23 97.5 F L 59 L 18 151/86 97 08/18/19 13:43 72 18 119/72 100 08/18/19 12:28 72 18 138/65 100 08/18/19 09:49 97.8 F 72 18 156/99 97 Intake and Output 08/17/19 08/18/19 08/18/19 22:59 06:59 14:59 Intake Total 1000 Balance 1000 Intake: Amount of Fluid Infused ( 1000 ml) Other: Voiding Method Toilet Weight 97.069 kg PHYSICAL EXAMINATION: Patient is lying in the bed comfortably, no acute distress, awake alert and or iented.. HEENT: Normocephalic. Neck is supple. Pupils reactive. Nostrils clear. Oral cavity is moist. Ears reveal no drainage. Neck reveals no JVD, carotid bruits, or thyromegaly. CHEST EXAMINATION: Trachea is central. Symmetrical expansion. Lung fuller clear to auscultation and percussion. CARDIAC: Normal S1, S2 with no gallops. No murmurs ABDOMEN: Soft. Bowel sounds normal. No organomegaly. No abdominal bruits. Extremities: reveal no edema. No clubbing or cyanosis Neurologically awake, alert, oriented x3 with well-coordinated movements. No focal deficits noted Skin: No rash or skin lesions. Psychiatric: Coperative. Nonsuicidal Musculoskeletal: No joint swelling or deformity. Normal range of motion. Results CBC & Chem 7: 08/18/19 10:40 08/18/19 10:40 Labs: Abnormal Lab Results - Last 24 Hours (Table) 08/18/19 08/18/19 Range/Units 10:40 10:40 Plt Count 121 L (150-450) k/uL Chloride 112 H (98-107) mmol/L Carbon Dioxide 19 L (22-30) mmol/L Glucose 174 H (74-99) mg/dL AST 88 H (17-59) U/L ALT 165 H (21-72) U/L Alkaline Phosphatase 147 H (38-126) U/L Thrombosis Risk Factor Assmnt - DVT/VTE Prophylaxis DVT/VTE Prophylaxis: Pharmacologic Prophylaxis ordered - Choose All That Apply Any of the Below Risk Factors Present?: Yes Each Factor Represents 1 point: Age 41-60 years, Obesity (BMI >25) Other Risk Factors: No Other congenital or acquired thrombophilia - If yes, enter type in comment: No Thrombosis Risk Factor Assessment Total Risk Factor Score: 2 Thrombosis Risk Factor Assessment Level: Low Risk Assessment and Plan Assessment: Atypical chest pain. Ruled out ACS. Possible gastritis versus peptic ulcer disease Elevated liver enzymes and alk phos. Uncontrolled hypertension on admission Diabetes type 2 [id number] Hepatitis C with treatment 2 years back History of polysubstance abuse and has been clean for the past 2 years History of [place] Nephrolithiasis History of migraine headaches History of cholecystectomy DVT prophylaxis with heparin subcu GI prophylaxis. Pepcid 20 mg twice a day Plan: Patient will be continued on telemetry monitoring. Serial EKGs and troponins 3 negative. Cardiology was consulted for further evaluation. Continue Pepcid twice daily. Continue with insulin sliding scale and blood pressure medications. Patient is currently on hydrochlorothiazide, lisinopril and Norvasc at home. Follow up liver enzymes. Bilirubin within normal limits. US LIVER WAS ORDERED. Further recommendations based on the clinical course. Time with Patient: Greater than 30
[2019-08-19 06:05] LABS: ALT 145 U/L (21-72); AST 86 U/L (17-59); African American GFR (CKD) >90 (>60 ml/min/1.73 sqM); Alkaline Phosphatase 152 U/L (38-126); Anion Gap 4 mmol/L; Blood Urea Nitrogen 16 mg/dL (9-20); Calcium 8.3 mg/dL (8.4-10.2); Carbon Dioxide 21 mmol/L (22-30); Chloride 114 mmol/L (98-107); Cholesterol 127 mg/dL (<200); Glucose 231 mg/dL (74-99); HDL Cholesterol 48 mg/dL (40-60); LDL Cholesterol,Calculated 60 mg/dL (0-99); Non-African American GFR(CKD) >90 (>60 ml/min/1.73 sqM); Potassium 3.9 mmol/L (3.5-5.1); Sodium 139 mmol/L (137-145); Total Bilirubin 0.4 mg/dL (0.2-1.3); Total Protein 5.8 g/dL (6.3-8.2); Triglycerides 96 mg/dL (<150)
[2019-08-19 06:41] LABS: Glucose,Whole Blood 169 mg/dL (75-99)
--- NOTE | 2019-08-19 06:50 | P.CRDCN ---
History of Present Illness Consult date: 08/19/19 Chief complaint: Chest pain History of present illness: This is a pleasant 54-year-old gentleman with a past medical history significant for diabetes, hypertension, dyslipidemia, and "heart attack," as well as history of hepatitis C and history of drug abuse in the past presented to the hospital complaining of chest discomfort. The patient stated that the discomfort started a few weeks ago. He described it as a sharp, in the mid of the chest, without any irritation, and without any associated symptoms. He denies any shortness of breath, dizziness, heart racing, or syncope. The chest discomfort does not seems to be exertional. The patient does have multiple risk factors including diabetes, hypertension, and dyslipidemia. He does not recall having any coronary artery stenting but he stated that he didn't have a heart attack in the past. The details on that are unavailable. In terms of workup, the EKG showed sinus rhythm without any ischemic ST or T-wave abnormalities. The cardiac enzymes were checked and came in to be unremarkable. The chest x-ray did not show any acute abnormalities. The rest of the workup is all unremarkable. The blood pressure seems to be within normal limits. Past Medical History Past Medical History: Diabetes Mellitus, Hyperlipidemia, Hypertension, Liver Disease, Myocardial Infarction ([place]), Renal Disease Additional Past Medical History / Comment(s): NIDDM type II, hepatitis C which pt states was treated and liver enzymes now normal, [place] in 2008 d/t drug use per pt, chronic renal insufficiency, R sided kidney stone x2, peptic ulcer, migraines, sinusitis. Last Myocardial Infarction Date:: 2008 History of Any Multi-Drug Resistant Organisms: None Reported Past Surgical History: Cholecystectomy Additional Past Surgical History / Comment(s): Partial r apical lobectomy for bleb at age 18 yrs, 2002 repair ligament LFA after self injury, 2013 Exploratory laparotomy removal foreign body after self injury, EGD, cardiac cath in 2014, pain clinic procedures for back pain. Past Anesthesia/Blood Transfusion Reactions: No Reported Reaction Additional Past Anesthesia/Blood Transfusion Reaction / Comment(s): Pt states he has never received blood. Smoking Status: Never smoker - Past Family History Father Family Medical History: COPD Additional Family Medical History / Comment(s): Father at 71 yrs of age. Mother Family Medical History: Cancer Additional Family Medical History / Comment(s): Mother had breast cancer with mets and of this at 67yrs of age. Medications and Allergies Home Medications Medication Instructions Recorded Confirmed Type Diclofenac Sodium [Voltaren] 75 mg PO DAILY 08/18/19 08/18/19 History Lisinopril 40 mg PO BID 08/18/19 08/18/19 History Montelukast [Singulair] 10 mg PO DAILY 08/18/19 08/18/19 History amLODIPine [Norvasc] 5 mg PO HS 08/18/19 08/18/19 History metFORMIN HCL 1,000 mg PO BID 08/18/19 08/18/19 History Allergies Allergy/AdvReac Type Severity Reaction Status Date / Time No Known Allergies Allergy Verified 08/18/19 12:05 Physical Exam Vitals: Vital Signs Temp Pulse Pulse Pulse Resp BP BP 08/19/19 04:05 52 L 18 08/19/19 04:00 98.0 F 52 L 18 127/71 08/19/19 00:19 98.4 F 63 18 114/58 08/18/19 23:23 18 08/18/19 19:46 98.1 F 55 L 18 161/85 08/18/19 19:20 18 08/18/19 14:23 97.5 F L 59 L 18 151/86 08/18/19 13:43 72 18 119/72 08/18/19 12:28 72 18 138/65 08/18/19 09:49 97.8 F 72 18 156/99 Pulse Ox 08/19/19 04:05 08/19/19 04:00 97 08/19/19 00:19 96 08/18/19 23:23 08/18/19 19:46 97 08/18/19 19:20 08/18/19 14:23 97 08/18/19 13:43 100 08/18/19 12:28 100 08/18/19 09:49 97 Intake and Output 08/18/19 08/18/19 08/19/19 14:59 22:59 06:59 Intake Total 1000 120 Balance 1000 120 Intake: Amount of Fluid Infused ( 1000 ml) Oral 120 Other: Voiding Method Toilet Toilet Toilet # Voids 1 1 Weight 97.069 kg - Constitutional General appearance: no acute distress - Respiratory Respiratory: bilateral: CTA - Cardiovascular Rhythm: regular Heart sounds: normal: S1, S2 Abnormal Heart Sounds: systolic murmur Results 08/18/19 10:40 08/19/19 05:22 Cardiac Enzymes 08/18/19 08/18/19 08/18/19 Range/Units 10:40 10:40 16:29 AST 88 H (17-59) U/L Troponin I <0.012 <0.012 (0.000-0.034) ng/mL 08/18/19 08/19/19 Range/Units 22:33 05:22 AST 86 H (17-59) U/L Troponin I <0.012 (0.000-0.034) ng/mL Coagulation 08/18/19 Range/Units 10:40 PT 11.2 (9.0-12.0) sec APTT 22.8 (22.0-30.0) sec Lipids 08/19/19 Range/Units 05:22 Triglycerides 96 (<150) mg/dL Cholesterol 127 (<200) mg/dL HDL Cholesterol 48 (40-60) mg/dL CBC 08/18/19 Range/Units 10:40 WBC 9.2 (3.8-10.6) k/uL RBC 4.43 (4.30-5.90) m/uL Hgb 14.2 (13.0-17.5) gm/dL Hct 39.9 (39.0-53.0) % Plt Count 121 L (150-450) k/uL Comprehensive Metabolic Panel 08/18/19 08/19/19 Range/Units 10:40 05:22 Sodium 141 139 (137-145) mmol/L Potassium 3.9 3.9 (3.5-5.1) mmol/L Chloride 112 H 114 H (98-107) mmol/L Carbon Dioxide 19 L 21 L (22-30) mmol/L BUN 19 16 (9-20) mg/dL Creatinine 0.86 0.87 (0.66-1.25) mg/dL Glucose 174 H 231 H (74-99) mg/dL Calcium 9.6 8.3 L (8.4-10.2) mg/dL AST 88 H 86 H (17-59) U/L ALT 165 H 145 H (21-72) U/L Alkaline Phosphatase 147 H 152 H (38-126) U/L Total Protein 7.2 5.8 L (6.3-8.2) g/dL Albumin 3.9 3.0 L (3.5-5.0) g/dL Current Medications Generic Name Dose Route Start Last Admin Trade Name Jonah PRN Reason Stop Dose Admin Amlodipine Besylate 5 mg 08/18/19 21:00 08/18/19 20:56 Norvasc PO 5 mg HS RONEL Administration Aspirin 325 mg 08/19/19 09:00 Aspirin PO DAILY [facility] Famotidine 20 mg 08/18/19 15:45 08/18/19 20:55 Pepcid PO 20 mg BID RONEL Administration Insulin Aspart 0 unit 08/18/19 17:30 08/18/19 20:56 Novolog SQ 1 unit ACHS RONEL Administration Protocol Lisinopril 40 mg 08/18/19 21:00 08/18/19 20:55 Zestril PO 40 mg BID RONEL Administration Montelukast Sodium 10 mg 08/19/19 09:00 Singulair PO DAILY [facility] Nitroglycerin 0.4 mg 08/18/19 12:22 Nitrostat SUBLINGUAL Q5M PRN Chest Pain Intake and Output 08/18/19 08/18/19 08/19/19 14:59 22:59 06:59 Intake Total 1000 120 Balance 1000 120 Intake: Amount of Fluid Infused ( 1000 ml) Oral 120 Other: Voiding Method Toilet Toilet Toilet # Voids 1 1 Weight 97.069 kg Patient Weight 08/19/19 06:59 Weight 97.069 kg 08/18/19 10:40 08/19/19 05:22 Assessment and Plan Assessment: Assessment #1 intermittent episodes of atypical chest discomfort #2 multiple risk factors for CAD including diabetes, hypertension, and dysli pidemia Plan #1 acute coronary event was ruled out #2 I did recommend obtaining an echocardiogram #3 I did recommend proceeding with a stress test to rule out severe CAD giving his multiple risk factors #4 follow-up with the patient Thank you for allowing us participate in his care
[2019-08-19 07:17] VITALS: RESP 18
--- NOTE | 2019-08-19 08:27 | US ---
EXAMINATION TYPE: US liver DATE OF EXAM: 08/19/2019 COMPARISON: 12/30/2016 CLINICAL HISTORY: elevated enzymes. EXAM MEASUREMENTS: Liver Length: 16.2 cm Gallbladder Wall: Surgically absent CBD: 0.9 cm Right Kidney: 10.9 x 4.3 x 4.8 cm Pancreas: Obscured by bowel gas Liver: There is very mild increased echogenicity of the hepatic parenchyma with diminished visualiza tion of the portal triads most commonly relating to hepatic steatosis and limiting evaluation for und erlying hepatic masses. Gallbladder: Surgically absent Evidence for sonographic Torres's sign: no CBD: wnl Right Kidney: wnl IMPRESSION: Very mild increased echogenicity of the hepatic parenchyma suggesting mild degree hepatic steatosis as suggested on the exam of 2016.
[2019-08-19] MEDS ORDERED: ASPIRIN 325 MG TAB PO SCH (09:00)
[2019-08-19] MEDS ORDERED: MONTELUKAST 10 MG TAB PO SCH (09:00)
[2019-08-19] MEDS: INSULIN ASPART (NovoLOG) 100 UNIT/ML VIAL SQ SCH ×2 (09:27→12:23)
[2019-08-19 11:29] VITALS: BP 143/85; PULSE 64; TEMP 97.7
[2019-08-19] MEDS: LISINOPRIL 20 MG TAB PO SCH (11:29)
[2019-08-19] MEDS: FAMOTIDINE 20 MG TAB PO SCH (11:29)
[2019-08-19 11:47] LABS: Glucose,Whole Blood 137 mg/dL (75-99)
--- NOTE | 2019-08-19 11:49 | NM ---
EXAMINATION TYPE: NM stress cardiolite complete DATE OF EXAM: 08/19/2019 COMPARISON: 07/27/2015 HISTORY: Chest pain TECHNIQUE: After the intravenous administration of 9.9 mCi Tc 99m Sestamibi - Rest images obtained 4 5 minutes post injection. The patient exercised using a JAYSHREE protocol and 1 minute prior to peak e xercise was injected with 24.3 mCi Tc 99m Sestamibi - Stress images obtained 15 minutes post injectio n. FINDINGS: Targeted heart rate was achieved during performance of the study. Review of stress and rest SPECT mayte ges demonstrates no distinct perfusion abnormality. Gated analysis shows normal wall motion with an estimated left ventricular ejection fraction of 63 %. TID is calculated within normal limits at 0.88. IMPRESSION: 1. No scintigraphic evidence for reversible ischemia. 2. 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
--- NOTE | 2019-08-19 13:33 | ECHOF ---
Referral Reason:cp MEASUREMENTS -------- HEIGHT: 157.5 cm WEIGHT: 97.1 kg BP: RVIDd: 3.5 cm (< 3.3) IVSd: 1.3 cm (0.6 - 1.1) LVIDd: 5.0 cm (3.9 - 5.3) LVPWd: 1.8 cm (0.6 - 1.1) IVSs: 1.7 cm LVIDs: 4.2 cm LVPWs: 1.6 cm Ao Diam: 3.0 cm (2.0 - 3.7) AV Cusp: 2.0 cm (1.5 - 2.6) LA Diam: 4.3 cm (2.7 - 3.8) MV EXCURSION: 17.354 mm (> 18.000) MV EF SLOPE: 108 mm/s (70 - 150) EPSS: 0.7 cm MV E Ge: 0.82 m/s MV DecT: 153 ms MV A Ge: 0.18 m/s MV E/A Ratio: 4.49 RAP: 5.00 mmHg RVSP: 8.39 mmHg FINDINGS -------- Sinus rhythm. This was a technically difficult study with suboptimal views. The left ventricular size is normal. There is mild concentric left ventricular hypertrophy. Overa ll left ventricular systolic function is normal with, an EF between 55 - 60 %. The right ventricle is normal in size. The left atrial size is normal. The right atrial size is normal. Lumason used There is mild aortic valve sclerosis without stenosis. There is no evidence of aortic regurgitation . Mild mitral annular calcification present. Mild mitral regurgitation is present. Mild tricuspid regurgitation present. There is no evidence of pulmonary hypertension. The right v entricular systolic pressure, as measured by Doppler, is 8.39mmHg. The pulmonic valve was not well visualized. The aortic root size is normal. There is no pericardial effusion. CONCLUSIONS -------- 1. Sinus rhythm. 2. This was a technically difficult study with suboptimal views. 3. The left ventricular size is normal. 4. Overall left ventricular systolic function is normal with, an EF between 55 - 60 %. 5. The right ventricle is normal in size. 6. The left atrial size is normal. 7. The right atrial size is normal. 8. Lumason used 9. There is mild aortic valve sclerosis without stenosis. 10. Mild mitral annular calcification present. 11. There is no evidence of pulmonary hypertension. 12. The right ventricular systolic pressure, as measured by Doppler, is 8.39mmHg. 13. The pulmonic valve was not well visualized. 14. The aortic root size is normal. 15. There is no pericardial effusion. FULL STACK SOFTWARE ENGINEER: Shalini Mason RDCS
--- NOTE | 2019-08-19 13:35 | EST ---
EXERCISE STRESS DATE OF SERVICE: August 19, 2019 AGE: 54 SEX: Male HT: 5'2" WT: 214 pounds PROTOCOL: Cardiolite STAGE: IV DURATION OF EXERCISE: 9 minutes 30 seconds HEART RATE REST: 64 BLOOD PRESSURE REST: 131/80 MAXIMUM HEART RATE ACHIEVED: 142 MAXIMUM BLOOD PRESSURE: 224/87 85% MPHR: 141 100% MPHR: 166 METS: 10.1 INDICATIONS: Chest pain. CLINICAL INFORMATION: STRESS DATA: Heart rate 64, pressure is 131/80 mmHg. Baseline KG showed sinus mechanism. The patient exercised on the treadmill according to Jonn protocol for a total of 9 minutes and 30 seconds and achieved 10.1 METs. Max heart rate was 142, which is about 85% of maximum predicted heart rate. Maximum blood pressure was 224/87 mmHg. Clinically the patient did not have any symptoms of chest pain or chest discomfort. The EKG did not show any significant ST or T-wave abnormalities concerning for ischemia. CONCLUSION: 1. Excellent exercise tolerance. 2. Normal EKG in response to exercise. 3. Please follow up on the Cardiolite portion on separate report from Radiology Department. MMODL / IJN: [id number] /
[2019-08-20] MEDS ORDERED: ASPIRIN 81 MG PO SCH (09:00)
--- NOTE | 2019-08-30 00:23 | P.DS ---
Providers Date of admission: 08/18/19 12:23 Expected date of discharge: 08/19/19 Attending physician: Alin Norman Consults: 08/18/19 12:23 Consult Physician Urgent Consulting Provider: Oscar Maloney Consult Reason/Comments: unstable angina Do you want consulting provider notified?: Yes Primary care physician: John Babcock [facility] Course: Discharge diagnosis Atypical chest pain. Ruled out ACS. Stress test negative. Possible gastritis versus peptic ulcer disease. Recommends discontinuing diclofenac. Elevated liver enzymes and alk phos. improving now. Hepatic steatosis Uncontrolled hypertension on admission Diabetes type 2 [id number] Hepatitis C with treatment 2 years back History of polysubstance abuse and has been clean for the past 2 years History of DE Nephrolithiasis History of migraine headaches History of cholecystectomy DVT prophylaxis with heparin subcu GI prophylaxis. Pepcid 20 mg twice a day Hospital course Patient is a 54-year-old male with a known history of hypertension, diabetes type 2 [id number], history of hepatitis C status post treatment 2 years back, previous history of polysubstance abuse (has been clean for the past 2 years) , history of DE and renal stones and multiple other medical problems came to ER with complaints of intermittent chest pain for the past 1 week. Chest pain is mainly left retrosternal below pectoralis margin. Patient has been experiencing sharp pains for the past 1 week lasting about 1-2 minutes. Today while he was at work she developed chest pain again and felt diaphoretic and dizzy. Associated with some nausea. No vomiting. No radiation of the pain down the arm. Patient says that she also had elevated blood pressures at that time. Due to the above symptoms patient presented to ER for further evaluation. Denied any pain associated with food intake. history of peptic ulcer disease in the past. Denied any fever or chills. No cough or sputum production. No recent illness. Patient has been taking Motrin on daily basis recently due to spurs in the foot and is out of his prescribed medication diclofenac sodium. Yesterday patient had intra-articular steroid injection to the foot. EKG showed normal sinus rhythm Chest x-ray showed no acute cardiopulmonary process. AST ALT and alk phos slightly elevated. Patient otherwise denied any right upper quadrant pain. Troponin 3 negative. Plan: Patient was continued on telemetry monitoring. Serial EKGs and troponins 3 negative. Cardiology was consulted for further evaluation. Continue Pepcid twice daily. Continue with insulin sliding scale and blood pressure medications. Patient is currently on hydrochlorothiazide, lisinopril and Norvasc at home. Follow up liver enzymes improving. Bilirubin within normal limits. US LIVER WAS ORDERED. Showed hepatic steatosis. Patient underwent Cardiolite stress test today. It is negative. Patient is being discharged home. Symptomatically improved. PHYSICAL EXAMINATION: Patient is lying in the bed comfortably, no acute distress, awake alert and oriented.. HEENT: Normocephalic. Neck is supple. Pupils reactive. Nostrils clear. Oral cavity is moist. Ears reveal no drainage. Neck reveals no JVD, carotid bruits, or thyromegaly. CHEST EXAMINATION: Trachea is central. Symmetrical expansion. Lung fuller clear to auscultation and percussion. CARDIAC: Normal S1, S2 with no gallops. No murmurs ABDOMEN: Soft. Bowel sounds normal. No organomegaly. No abdominal bruits. Extremities: reveal no edema. No clubbing or cyanosis Neurologically awake, alert, oriented x3 with well-coordinated movements. No focal deficits noted Skin: No rash or skin lesions. Psychiatric: Coperative. Nonsuicidal Musculoskeletal: No joint swelling or deformity. Normal range of motion. Vital Signs Temp Pulse Pulse Pulse Resp BP BP 08/19/19 04:05 52 L 18 08/19/19 04:00 98.0 F 52 L 18 127/71 08/19/19 00:19 98.4 F 63 18 114/58 08/18/19 23:23 18 08/18/19 19:46 98.1 F 55 L 18 161/85 08/18/19 19:20 18 08/18/19 14:23 97.5 F L 59 L 18 151/86 08/18/19 13:43 72 18 119/72 08/18/19 12:28 72 18 138/65 08/18/19 09:49 97.8 F 72 18 156/99 Pulse Ox 08/19/19 04:05 08/19/19 04:00 97 08/19/19 00:19 96 08/18/19 23:23 08/18/19 19:46 97 08/18/19 19:20 08/18/19 14:23 97 08/18/19 13:43 100 08/18/19 12:28 100 08/18/19 09:49 97 Intake and Output 08/18/19 08/18/19 08/19/19 14:59 22:59 06:59 Intake Total 1000 120 Balance 1000 120 Intake: Amount of Fluid Infused ( 1000 ml) Oral 120 Other: Voiding Method Toilet Toilet Toilet # Voids 1 1 Weight 97.069 kg Total time taken greater than 35 minutes including 18 minutes for counseling and coordination of care. Patient Condition at Discharge: Stable Plan - Discharge Summary Discharge Rx Participant: No New Discharge Prescriptions: New Aspirin 81 mg PO DAILY #30 chew Continue metFORMIN HCL 1,000 mg PO BID Montelukast [Singulair] 10 mg PO DAILY Lisinopril 40 mg PO BID amLODIPine [Norvasc] 5 mg PO HS Discontinued Diclofenac Sodium [Voltaren] 75 mg PO DAILY Discharge Medication List Lisinopril 40 mg PO BID 08/18/19 [History] Montelukast [Singulair] 10 mg PO DAILY 08/18/19 [History] amLODIPine [Norvasc] 5 mg PO HS 08/18/19 [History] metFORMIN HCL 1,000 mg PO BID 08/18/19 [History] Aspirin 81 mg PO DAILY #30 chew 08/19/19 [Rx] Follow up Appointment(s)/Referral(s): Sadiq Lopez MD [Primary Care Provider] - 1-2 days Adrián Cuenca MD [STAFF PHYSICIAN] - 08/26/19 3:15 pm Patient Instructions/Handouts: Chest Pain (DC) Discharge Disposition: HOME SELF-CARE
== END 2019-08-19 15:18 | disposition home or self-care (01) ==
LOC: EC 09:44 → 1SOBS 12:23
PROVIDERS: ADMIT Hospitalist; ATTEND Hospitalist
DX: R07.89 Other chest pain (principal); R61 Generalized hyperhidrosis; R42 Dizziness and giddiness; R11.0 Nausea; K76.0 Fatty (change of) liver, not elsewhere classified; I12.9 Hypertensive chronic kidney disease with stage 1 through stage 4 chronic kidney disease, or unspecified chronic kidney disease; N18.9 Chronic kidney disease, unspecified; E11.22 Type 2 diabetes mellitus with diabetic chronic kidney disease; E78.5 Hyperlipidemia, unspecified; M48.00 Spinal stenosis, site unspecified; N20.0 Calculus of kidney; G43.909 Migraine, unspecified, not intractable, without status migrainosus; G89.29 Other chronic pain; M54.9 Dorsalgia, unspecified; F32.9 Major depressive disorder, single episode, unspecified; E66.9 Obesity, unspecified; Z68.39 Body mass index [BMI] 39.0-39.9, adult; Z79.84 Long term (current) use of oral hypoglycemic drugs; Z79.1 Long term (current) use of non-steroidal anti-inflammatories (NSAID); Z79.899 Other long term (current) drug therapy; I25.2 Old myocardial infarction; Z90.49 Acquired absence of other specified parts of digestive tract; Z87.898 Personal history of other specified conditions; Z86.19 Personal history of other infectious and parasitic diseases; Z87.442 Personal history of urinary calculi; Z87.11 Personal history of peptic ulcer disease; Z87.09 Personal history of other diseases of the respiratory system; Z90.2 Acquired absence of lung [part of]; Z82.5 Family history of asthma and other chronic lower respiratory diseases; Z80.3 Family history of malignant neoplasm of breast
CPT/HCPCS: 96361 ×3; 96360; 99285; 36415; 93005; 93017; 80061; 80053 ×2; 83735; 84484; 85025; 85610; 85730; 71046; 76705; 78452; G0378 ×2; C8929; A9500; Q9950; 93306

== ENCOUNTER → 2020-08-22 | Outpatient (CLI) | payer OTHER ==
--- NOTE | 2020-08-22 08:29 | US ---
EXAMINATION TYPE: US liver DATE OF EXAM: 08/22/2020 COMPARISON: NONE CLINICAL HISTORY: B18.2 Chronic viral HEP C. abnormal labs. GB removed. EXAM MEASUREMENTS: Liver Length: 18.1 cm CBD: 0.7 cm Right Kidney: 11.8 x 5.1 x 5.0 cm Pancreas: Tail obscured by overlying bowel gas. Body appears enlarged = 2.3 cm Liver: Appears nodule, coarse and heterogenous. Upper limits of normal in size. Gallbladder: Surgically absent Evidence for sonographic Torres's sign: neg CBD: wnl Right Kidney: No hydronephrosis or masses seen IMPRESSION: 1. Nonspecific fullness of the pancreas. Consider CT correlation. 2. Probable fatty liver. Multiple nodularity may reflect cirrhotic liver disease. Correlate clinicall y.
== END | disposition home or self-care (01) ==
LOC: RADUSWWP 06:53
PROVIDERS: ATTEND Internal Medicine Gastroenterology
DX: K86.9 Disease of pancreas, unspecified (principal); B18.2 Chronic viral hepatitis C
CPT/HCPCS: 76705

== ENCOUNTER → 2020-09-05 | Outpatient (CLI) | payer OTHER ==
[2020-09-05 12:28] LABS: African American GFR (CKD) >90 (>60 ml/min/1.73 sqM); Blood Urea Nitrogen 16 mg/dL (9-20); Non-African American GFR(CKD) >90 (>60 ml/min/1.73 sqM)
--- NOTE | 2020-09-05 16:27 | CT ---
EXAMINATION TYPE: CT abdomen w con DATE OF EXAM: 09/05/2020 COMPARISON: 10/16/2015 HISTORY: Right sided abdominal pain. Pancreas fullness. CT DLP: 1347.1 mGycm CONTRAST: CT scan of the abdomen is performed with Oral Contrast and with IV Contrast, patient injected with 10 0 mL of Isovue M300. FINDINGS: LUNG BASES-: No visible nodule. No infiltrate. LIVER/GB: The gallbladder surgically absent. No space occupying hepatic lesion. Biliary tree is of normal caliber. PANCREAS: No inflammation. No distinct mass. SPLEEN: No splenic enlargement. No lesion seen. ADRENALS: No nodule. No thickening. KIDNEYS/BLADDER: No hydronephrosis. 3 mm nonobstructing calculus left kidney. No distinct renal mass . Urinary bladder grossly unremarkable. BOWEL: Normal appendix. Normal bowel caliber. No inflammation. LYMPH NODES: No greater than 1cm abdominal or pelvic lymph nodes are appreciated. AORTA: No significant abnormality. OSSEOUS STRUCTURES: No significant abnormality is seen. OTHER: No significant additional abnormality is seen. IMPRESSION: 1. No distinct pancreatic abnormality.
== END | disposition home or self-care (01) ==
LOC: RADCTMAIN 11:20
PROVIDERS: ATTEND Internal Medicine
DX: K86.9 Disease of pancreas, unspecified (principal)
CPT/HCPCS: 82565; 84520; 74160; 36415; Q9967 ×2

== ENCOUNTER → 2020-09-28 | Outpatient (CLI) | payer OTHER ==
[2020-09-28 10:17] LABS: Basophils % (A) 0 %; Eosinophils # (A) 0.2 k/uL (0-0.7); Eosinophils % (A) 3 %; HCT 41.9 % (39.0-53.0); HGB 14.6 gm/dL (13.0-17.5); Lymphocytes # (A) 2.3 k/uL (1.0-4.8); Lymphocytes % (A) 43 %; MCH 32.8 pg (25.0-35.0); MCHC 34.7 g/dL (31.0-37.0); MCV 94.4 fL (80.0-100.0); Mean Platelet Volume 8.7; Monocytes # (A) 0.3 k/uL (0-1.0); Monocytes % (A) 6 %; Neutrophils # (A) 2.4 k/uL (1.3-7.7); Neutrophils % (A) 46 %; RBC 4.44 m/uL (4.30-5.90); RDW 12.9 % (11.5-15.5); WBC 5.2 k/uL (3.8-10.6)
[2020-09-28 11:38] LABS: Platelet Count 86 k/uL (150-450)
[2020-09-28 14:13] LABS: INR 1.06 (0.90-1.11); Prothrombin Time 11.4 sec (9.9-11.9)
[2020-09-28 14:58] LABS: Alpha Fetoprotein, Tumor Mkr 6.9 ng/mL (0.0-7.9)
[2020-09-28 15:15] LABS: African American GFR (CKD) 116.6 (60.0-200.0); Albumin/Globulin Ratio 1.54 (1.60-3.17); Anion Gap 7.1 mmol/L (4.00-12.00); BUN/Creat Ratio 17.5 Ratio (12.00-20.00); Carbon Dioxide 22.9 mmol/L (21.6-31.8); Globulin 2.6 g/dL (1.6-3.3); Non-African American GFR(CKD) 100.6 (60.0-200.0); Total Bilirubin 1.4 mg/dL (0.2-1.2); Total Protein 6.6 g/dL (6.2-8.2)
[2020-09-28 16:35] LABS: HIV 2 AB Non-Reactive (Non-Reactive); HIV AB P24 Non-Reactive (Non-Reactive); HIV P24 AG Non-Reactive (Non-Reactive)
[2020-09-28 20:59] LABS: Hepatitis A Antibody IgM Non-Reactive (Non-Reactive); Hepatitis B Core IgM Non-Reactive (Non-Reactive); Hepatitis B Surface Antigen Non-Reactive (Non-Reactive); Hepatitis C IgG Antibody Reactive (Non-Reactive)
== END | disposition home or self-care (01) ==
LOC: LABWHC1 09:23
PROVIDERS: ATTEND Nurse Practitioner
DX: B18.2 Chronic viral hepatitis C (principal)
CPT/HCPCS: 36415; 80053; 80074; 82105; 85025; 85610; 87390; 87522

== ENCOUNTER → 2020-11-29 | Outpatient (CLI) | payer OTHER ==
[2020-11-29 17:43] LABS: Basophils # (A) 0.02 X 10*3/uL (0.00-0.10); Basophils % (A) 0.4 %; Eosinophils # (A) 0.16 X 10*3/uL (0.04-0.35); HCT 39.9 % (39.6-50.0); Lymphocytes # (A) 2.54 X 10*3/uL (0.90-5.00); Lymphocytes % (A) 47.7 %; MCH 32.9 pg (27.0-32.0); MCHC 35.1 g/dL (32.0-37.0); MCV 93.9 fL (80.0-97.0); Mean Platelet Volume 12.4 fL (9.5-12.2); Monocytes # (A) 0.44 X 10*3/uL (0.20-1.00); Monocytes % (A) 8.3 %; Neutrophils # (A) 2.16 X 10*3/uL (1.80-7.70); Neutrophils % (A) 40.4 %; Platelet Count 95 X 10*3/uL (140-440); RBC 4.25 X 10*6/uL (4.40-5.60); WBC 5.33 X 10*3/uL (4.50-10.00)
[2020-11-29 19:59] LABS: African American GFR (CKD) 97.8 (60.0-200.0); Albumin 4.1 g/dL (3.80-4.90); Albumin/Globulin Ratio 1.58 (1.60-3.17); Anion Gap 7.9 mmol/L (4.00-12.00); Calcium 9.5 mg/dL (8.7-10.3); Carbon Dioxide 21.1 mmol/L (21.6-31.8); Globulin 2.6 g/dL (1.6-3.3); Non-African American GFR(CKD) 84.4 (60.0-200.0); Potassium 4.3 mmol/L (3.5-5.5); Total Bilirubin 1.1 mg/dL (0.3-1.2); Total Protein 6.7 g/dL (6.2-8.2)
== END | disposition home or self-care (01) ==
LOC: LABWHC1 09:30
PROVIDERS: ATTEND Nurse Practitioner
DX: B18.2 Chronic viral hepatitis C (principal)
CPT/HCPCS: 36415; 80053; 85025; 87522

== ENCOUNTER 2021-01-15 06:04 | Emergency (ER) | payer OTHER ==
--- NOTE | 2021-01-15 06:18 | ED ---
URI HPI - General Chief Complaint: Upper Respiratory Infection Stated Complaint: Fever,Cough Time Seen by Provider: 01/15/21 06:08 Source: patient, RN notes reviewed Mode of arrival: ambulatory Limitations: no limitations - History of Present Illness Initial Comments: 55-year-old male presents emergency Department chief complaint of cough congestion bodyaches fever or chills. Patient states symptoms started on Friday is worsened today. Patient states that he did take some Tylenol morning he states he feels short of breath but has no difficulty ambulating no exertional symptoms. He states he is achy all over. Denies any known sick contacts. Patient states he recently traveled back from [place]. - Related Data Home Medications Medication Instructions Recorded Confirmed lisinopriL 40 mg PO BID 08/18/19 01/15/21 metFORMIN HCL 1,000 mg PO BID 08/18/19 01/15/21 Acetaminophen Tab [Tylenol Tab] 500 mg PO Q8H PRN 01/15/21 01/15/21 Unknown Liver Compound Med 1 tab PO DAILY 01/15/21 01/15/21 Allergies Allergy/AdvReac Type Severity Reaction Status Date / Time No Known Allergies Allergy Verified 01/15/21 07:09 Review of Systems ROS Statement: Those systems with pertinent positive or pertinent negative responses have been documented in the HPI. ROS Other: All systems not noted in ROS Statement are negative. Past Medical History Past Medical History: Diabetes Mellitus, Hyperlipidemia, Hypertension, Liver Disease, Myocardial Infarction ([place]), Renal Disease Additional Past Medical History / Comment(s): NIDDM type II, hepatitis C which pt states was treated and liver enzymes now normal, IL in 2008 d/t drug use per pt, chronic renal insufficiency, R sided kidney stone x2, peptic ulcer, migraines, sinusitis. HISTORY OF ETOH AND HEROIN USE. PT CLEAN FOR 4 YEARS Last Myocardial Infarction Date:: 2008 History of Any Multi-Drug Resistant Organisms: None Reported Past Surgical History: Cholecystectomy Additional Past Surgical History / Comment(s): Partial r apical lobectomy for bleb at age 18 yrs, 2002 repair ligament LFA after self injury, 2013 Exploratory laparotomy removal foreign body after self injury, EGD, cardiac cath in 2014, pain clinic procedures for back pain. Past Anesthesia/Blood Transfusion Reactions: No Reported Reaction Additional Past Anesthesia/Blood Transfusion Reaction / Comment(s): Pt states he has never received blood. Past Psychological History: Depression Past Alcohol Use History: None Reported Past Drug Use History: None Reported - Past Family History Father Family Medical History: COPD Additional Family Medical History / Comment(s): Father at 71 yrs of age. Mother Family Medical History: Cancer Additional Family Medical History / Comment(s): Mother had breast cancer with mets and of this at 67yrs of age. General Exam Limitations: no limitations General appearance: alert, in no apparent distress Head exam: Present: atraumatic, normocephalic, normal inspection Eye exam: Present: normal appearance, PERRL, EOMI. Absent: scleral icterus, conjunctival injection, periorbital swelling ENT exam: Present: normal exam, normal oropharynx, mucous membranes moist Neck exam: Present: normal inspection. Absent: tenderness, meningismus, lymphadenopathy Respiratory exam: Present: normal lung sounds bilaterally. Absent: respiratory distress, wheezes, rales, rhonchi, stridor Cardiovascular Exam: Present: regular rate, normal rhythm, normal heart sounds. Absent: systolic murmur, diastolic murmur, rubs, gallop, clicks Neurological exam: Present: alert, oriented X3 Skin exam: Present: warm, dry, intact, normal color. Absent: rash Course Vital Signs 01/15/21 01/15/21 06:06 06:19 Temperature 99.2 F Pulse Rate 83 Respiratory 20 18 Rate Blood Pressure 155/98 O2 Sat by Pulse 98 Oximetry Medical Decision Making - Medical Decision Making X-rays unremarkable. Patient is positive for covid patient was given monoclonal antibodies. Patient was discharged in stable condition return parameters were discussed. - Lab Data Lab Results 01/15/21 Range/Units 06:43 Coronavirus (PCR) Detected A (Not Detectd) Disposition Clinical Impression: COVID-19 Disposition: HOME SELF-CARE Condition: Stable Instructions (If sedation given, give patient instructions): Coronavirus Disease 2019 (COVID-19) Additional Instructions: Please return to the Emergency Department if symptoms worsen or any other concerns. Is patient prescribed a controlled substance at d/c from ED?: No Referrals: Sadiq Lopez MD [Primary Care Provider] - 1-2 days Time of Disposition: 07:21
[2021-01-15 06:22] VITALS: RESP 18
--- NOTE | 2021-01-15 07:05 | XR ---
EXAM: XR Chest, 2 Views CLINICAL HISTORY: cough TECHNIQUE: Frontal and lateral views of the chest. COMPARISON: 08/18/2019. FINDINGS: Lungs: Unremarkable. No consolidation. Pleural space: Unremarkable. No pneumothorax. Heart: Unremarkable. No cardiomegaly. Mediastinum: Unremarkable. Bones/joints: Unremarkable. IMPRESSION: No radiographic evidence of acute cardiopulmonary process without significant interval change.
[2021-01-15] MEDS ORDERED: BAMLANIVIMAB (EUA) 700 MG, ETESEVIMAB (EUA) 1,400 MG in SODIUM CHLORIDE 0.9% 50 ML IVPB ONE (08:00)
[2021-01-15 10:46] VITALS: BP 132/75; PULSE 69; TEMP 97.1
== END 2021-01-15 10:45 | disposition home or self-care (01) ==
LOC: EC 06:04
DX: U07.1 COVID-19 (principal); E11.9 Type 2 diabetes mellitus without complications; E78.5 Hyperlipidemia, unspecified; I10 Essential (primary) hypertension; I25.2 Old myocardial infarction; F32.9 Major depressive disorder, single episode, unspecified; Z79.84 Long term (current) use of oral hypoglycemic drugs
CPT/HCPCS: 71046; 87635; 96365; 99285

== ENCOUNTER → 2021-02-21 | Outpatient (CLI) | payer OTHER ==
[2021-02-21 23:41] LABS: Basophils # (A) 0.03 X 10*3/uL (0.00-0.10); Basophils % (A) 0.5 %; Eosinophils # (A) 0.14 X 10*3/uL (0.04-0.35); Eosinophils % (A) 2.3 %; HCT 40.8 % (39.6-50.0); HGB 13.9 g/dL (13.0-17.0); Lymphocytes # (A) 2.94 X 10*3/uL (0.90-5.00); Lymphocytes % (A) 49.1 %; MCH 32.2 pg (27.0-32.0); MCHC 34.1 g/dL (32.0-37.0); MCV 94.4 fL (80.0-97.0); Mean Platelet Volume 12.4 fL (9.5-12.2); Monocytes # (A) 0.49 X 10*3/uL (0.20-1.00); Monocytes % (A) 8.2 %; Neutrophils # (A) 2.38 X 10*3/uL (1.80-7.70); Neutrophils % (A) 39.7 %; Platelet Count 99 X 10*3/uL (140-440); RBC 4.32 X 10*6/uL (4.40-5.60); RDW 12.5 % (11.5-14.5); WBC 5.99 X 10*3/uL (4.50-10.00)
[2021-02-22 03:58] LABS: Albumin/Globulin Ratio 1.54 (1.60-3.17); Anion Gap 9.6 mmol/L (4.00-12.00); BUN/Creat Ratio 16.67 Ratio (12.00-20.00); Carbon Dioxide 22.4 mmol/L (21.6-31.8); Globulin 2.6 g/dL (1.6-3.3); Non-African American GFR(CKD) 95.8 (60.0-200.0); Potassium 4.4 mmol/L (3.5-5.5); Total Bilirubin 0.7 mg/dL (0.2-1.2); Total Protein 6.6 g/dL (6.2-8.2)
== END | disposition home or self-care (01) ==
LOC: LABWHC1 08:06
PROVIDERS: ATTEND Nurse Practitioner
DX: B18.2 Chronic viral hepatitis C (principal)
CPT/HCPCS: 36415; 80053; 85025

== ENCOUNTER → 2021-03-19 | Outpatient (CLI) | payer OTHER ==
--- NOTE | 2021-03-20 06:11 | MR ---
EXAMINATION TYPE: MR liver wo/w con DATE OF EXAM: 03/19/2021 COMPARISON: None HISTORY: Elevated liver enzymes, and unspecified cirrhosis of liver. History of Hep C. CONTRAST: Standard multiplanar, multisequence MRI departmental protocol utilizing 10 mL intravenous Gadavist ga dolinium contrast. Liver has fairly normal size and contour. Spleen is enlarged and measures up to 17 cm in length. Stom ach is intact. I see no evidence of a pancreatic mass. The pancreatic duct appears normal. The intrae xtrahepatic bile ducts appear within normal limits. I see no filling defect. There is no sign of pleu ral effusion. There is no ascites. There is no adrenal mass. There is 1 cm cortical cyst medial right kidney. There is no evidence of retroperitoneal adenopathy. The contrast images show no pathologic enhancement. There is normal enhancement of the portal venous system. There is umbilical vein noted. IMPRESSION: There is splenomegaly. There is enhancement of the umbilical vein which is borderline dilated and thi s could relate to some degree of portal venous hypertension and cirrhosis. No focal liver defect. No evidence of abnormality of the biliary tree..
== END | disposition home or self-care (01) ==
LOC: RADMRIMAIN 21:16
PROVIDERS: ATTEND Nurse Practitioner
DX: R16.1 Splenomegaly, not elsewhere classified (principal); K76.6 Portal hypertension; K74.60 Unspecified cirrhosis of liver
CPT/HCPCS: 74183; A9585

== ENCOUNTER → 2021-12-24 | Outpatient (CLI) | payer OTHER ==
[2021-12-24 19:12] LABS: Basophils # (A) 0.01 X 10*3/uL (0.00-0.10); Basophils % (A) 0.2 %; Eosinophils # (A) 0.12 X 10*3/uL (0.04-0.35); Eosinophils % (A) 2.3 %; HCT 45.5 % (39.6-50.0); HGB 15.2 g/dL (13.0-17.0); Immature Grans, Automated 0.2 %; Lymphocytes # (A) 1.91 X 10*3/uL (0.90-5.00); Lymphocytes % (A) 36.2 %; MCH 30.5 pg (27.0-32.0); MCHC 33.4 g/dL (32.0-37.0); MCV 91.4 fL (80.0-97.0); Mean Platelet Volume 12.2 fL (9.5-12.2); Monocytes # (A) 0.21 X 10*3/uL (0.20-1.00); NRBC Per 100 WBC 0 /100 WBCS (0.0-0.0); Neutrophils # (A) 3.01 X 10*3/uL (1.80-7.70); Neutrophils % (A) 57.1 %; Platelet Count 118 X 10*3/uL (140-440); RBC 4.98 X 10*6/uL (4.40-5.60); RDW 13.4 % (11.5-14.5); WBC 5.27 X 10*3/uL (4.50-10.00)
[2021-12-24 19:23] LABS: African American GFR (CKD) 86.5 (60.0-200.0); Albumin 4.7 g/dL (3.8-4.9); Albumin/Globulin Ratio 1.74 (1.60-3.17); Anion Gap 13.4 mmol/L (10.00-18.00); BUN/Creat Ratio 11.73 Ratio (12.00-20.00); Blood Urea Nitrogen 12.9 mg/dL (9.0-27.0); Carbon Dioxide 23.6 mmol/L (20.0-27.5); Globulin 2.7 g/dL (1.6-3.3); Non-African American GFR(CKD) 74.6 (60.0-200.0); Potassium 3.9 mmol/L (3.5-5.5); Total Bilirubin 0.7 mg/dL (0.30-1.20); Total Protein 7.4 g/dL (6.2-8.2)
== END | disposition home or self-care (01) ==
LOC: LABWHC1 12:50
PROVIDERS: ATTEND Internal Medicine Gastroenterology
DX: B18.2 Chronic viral hepatitis C (principal); K74.60 Unspecified cirrhosis of liver
CPT/HCPCS: 36415; 80053; 82105; 85025; 87522

== ENCOUNTER → 2022-03-12 | Outpatient (CLI) | payer OTHER ==
--- NOTE | 2022-03-12 13:39 | US ---
EXAMINATION TYPE: US kidneys/renal and bladder DATE OF EXAM: 03/12/2022 COMPARISON: NONE CLINICAL HISTORY: 56-year-old male N20.0 CALCULUS OF KIDNEY. Left Flank Pain, Hx of kidney stones TECHNIQUE: Multiple sonographic images of the kidneys and bladder are obtained. FINDINGS: EXAM MEASUREMENTS: Right Kidney: 12.1 x 5.0 x 5.4 cm Left Kidney: 11.5 x 5.7 x 5.2 cm Right Kidney: No hydronephrosis. There is a rounded hypoechoic area at the mid pole contiguous with t he renal cortex and extending into the renal sinus region measuring 2.3 x 2.2 x 1.2 cm. Suspect a col umn of Lino. Left Kidney: No hydronephrosis. Echogenic, shadowing focus measuring 4 mm at the mid pole. Bladder: wnl Bilateral Jets seen: Yes IMPRESSION: 1. No hydronephrosis. 2. A 2.3 cm masslike area at the right kidney midpole, suspect a column of Lino rather than a mass. Six-month follow-up renal ultrasound recommended to ensure stability. 3. Nonobstructive 4 mm left midpole renal calculus.
== END | disposition home or self-care (01) ==
LOC: RADUSWWP 10:55
PROVIDERS: ATTEND Internal Medicine Geriatric Medicine
DX: N20.0 Calculus of kidney (principal)
CPT/HCPCS: 76770

== ENCOUNTER → 2022-04-12 | Outpatient (CLI) | payer OTHER ==
--- NOTE | 2022-04-12 08:58 | US ---
EXAMINATION TYPE: US liver DATE OF EXAM: 04/12/2022 COMPARISON: CT, US CLINICAL HISTORY: K74.60 UNSPECIFIED CIRRHOSIS OF LIVER. Cirrhosis. Hx cholecystectomy. EXAM MEASUREMENTS: Liver Length: 16.9 cm CBD: 0.83 cm Right Kidney: 11.6 x 5.5 x 4.4 cm Limited due to overlying bowel gas. Pancreas: Not well seen. Liver: Appears heterogeneous/ coarse in echotexture, limited. Measures upper limits of normal. *Portal vein measures 16 mm- appears dilated (>13 mm per dept values). PV flow appears hepatopedal. Gallbladder: Surgically absent. Evidence for sonographic Torres's sign: No CBD: Portions seen appear wnl post-cholecystectomy. Right Kidney: Indistinct, hypoechoic area seen that could resemble column of Lino measures 2.9 x 3 .4 x 1.6 cm. IMPRESSION: 1. Prominent portal vein. Portal vein flow is normal.
== END | disposition home or self-care (01) ==
LOC: RADUSWWP 08:00
PROVIDERS: ATTEND Internal Medicine Gastroenterology
DX: K74.60 Unspecified cirrhosis of liver (principal)
CPT/HCPCS: 76705

== ENCOUNTER → 2022-06-24 | Outpatient (CLI) | payer OTHER ==
--- NOTE | 2022-06-24 07:18 | US ---
EXAMINATION TYPE: US abdomen complete DATE OF EXAM: 06/24/2022 COMPARISON: Liver ultrasound 04/12/2022. CLINICAL HISTORY: K74.60 UNSPECIFIED CIRRHOSIS OF LIVER. Known cirrhosis, no symptoms, large habitus TECHNIQUE: Multiple sonographic images of the abdomen are obtained. FINDINGS: EXAM MEASUREMENTS: Liver Length: 18.4 cm Gallbladder Wall: Surgically absent CBD: 1.0 cm Spleen: 12.2 cm Right Kidney: 11.4 x 4.7 x 4.9 cm Left Kidney: 11.4 x 5.4 x 4.2 cm Pancreas: not seen due to bowel gas Liver: wnl Gallbladder: Surgically absent CBD: mildly dilated which is not unexpected in the setting of cholecystectomy. Spleen: wnl Right Kidney: wnl Left Kidney: wnl Upper IVC: wnl Abd Aorta: proximal view obscured by bowel gas The liver is heterogenous and coarsened echotexture. No definitive lesion identified. No nodularity i dentified. The intrahepatic portion of the IVC and proximal abdominal aorta are within normal limits. The spleen is unremarkable. Kidneys are symmetric and free of hydronephrosis. No renal lesions ar e seen. IMPRESSION: Heterogenous coarsened liver related to known cirrhosis. No focal hepatic lesion demonstrated.
[2022-06-24 10:42] LABS: African American GFR (CKD) 86.5 (60.0-200.0); Albumin 4.4 g/dL (3.8-4.9); Albumin/Globulin Ratio 1.52 (1.60-3.17); Anion Gap 9.8 mmol/L (10.00-18.00); BUN/Creat Ratio 15.73 Ratio (12.00-20.00); Blood Urea Nitrogen 17.3 mg/dL (9.0-27.0); Calcium 9.4 mg/dL (8.7-10.3); Carbon Dioxide 22.2 mmol/L (20.0-27.5); Globulin 2.9 g/dL (1.6-3.3); Non-African American GFR(CKD) 74.6 (60.0-200.0); Potassium 4.3 mmol/L (3.5-5.5); Total Bilirubin 0.5 mg/dL (0.30-1.20); Total Protein 7.3 g/dL (6.2-8.2)
[2022-06-24 12:12] LABS: Basophils # (A) 0.02 X 10*3/uL (0.00-0.10); Basophils % (A) 0.4 %; Eosinophils # (A) 0.14 X 10*3/uL (0.04-0.35); Eosinophils % (A) 2.7 %; HCT 44.3 % (39.6-50.0); HGB 15.2 g/dL (13.0-17.0); Immature Grans, Automated 0.2 %; Lymphocytes # (A) 1.97 X 10*3/uL (0.90-5.00); Lymphocytes % (A) 38.4 %; MCH 30.5 pg (27.0-32.0); MCHC 34.3 g/dL (32.0-37.0); MCV 88.8 fL (80.0-97.0); Mean Platelet Volume 11.9 fL (9.5-12.2); Monocytes % (A) 5.8 %; NRBC Per 100 WBC 0 /100 WBCS (0.0-0.0); Neutrophils # (A) 2.69 X 10*3/uL (1.80-7.70); Neutrophils % (A) 52.5 %; Platelet Count 103 X 10*3/uL (140-440); RBC 4.99 X 10*6/uL (4.40-5.60); RDW 13.2 % (11.5-14.5); WBC 5.13 X 10*3/uL (4.50-10.00)
== END | disposition home or self-care (01) ==
LOC: RADUSWWP 06:43
PROVIDERS: ATTEND Internal Medicine Geriatric Medicine
DX: K74.60 Unspecified cirrhosis of liver (principal)
CPT/HCPCS: 76700; 80053; 82105; 85025; 87522

== ENCOUNTER 2023-02-27 11:29 | Emergency (ER) | payer OTHER ==
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
[2023-02-27] MEDS ORDERED: ACETAMINOPHEN TAB 500 MG TAB PO STA (13:09)
[2023-02-27 13:22] VITALS: TEMP 98
[2023-02-27 13:23] VITALS: BP 142/82; PULSE 92; RESP 18
== END 2023-02-27 13:22 | disposition home or self-care (01) ==
LOC: EC 11:29
DX: R11.10 Vomiting, unspecified (principal); E11.9 Type 2 diabetes mellitus without complications; I10 Essential (primary) hypertension; I25.2 Old myocardial infarction; F32.A Depression, unspecified; Z79.84 Long term (current) use of oral hypoglycemic drugs; Z79.899 Other long term (current) drug therapy; V43.52XA Car driver injured in collision with other type car in traffic accident, initial encounter
CPT/HCPCS: 70450; 72125; 99284

== ENCOUNTER 2023-07-12 20:26 | Emergency (ER) | payer OTHER ==
[2023-07-12 20:31] LABS: Glucose,Whole Blood 141 mg/dL (70-110)
[2023-07-12 20:32] VITALS: RESP 18; TEMP 98.4
[2023-07-12] MEDS ORDERED: ASPIRIN 325 MG TAB PO STA (21:04)
[2023-07-12] MEDS ORDERED: SODIUM CHLORIDE 0.9% 2,000 ML IV STA (22:01)
--- NOTE | 2023-07-12 22:41 | ED ---
Dizziness HPI - General Chief Complaint: Syncope Stated Complaint: Syncope Time Seen by Provider: 07/12/23 20:45 Source: patient, family Mode of arrival: wheelchair Limitations: no limitations - History of Present Illness Initial Comments: Patient is a 57-year-old male who presents to the emergency department for lightheadedness. Patient reports 2 episodes of near syncope today. The first time was at the grocery store and the second time was at his grandchild's football game which patient was sitting down and watching. During the episodes patient states he felt lightheaded and his vision was fuzzy. Patient did not have a syncopal episode. No history of syncope or arrhythmia. He denies chest pain, shortness of breath, nausea, vomiting. No abdominal pain or diarrhea. States he had coffee and [employer] prior to his episode. Denies fever, chills, upper respiratory symptoms. Patient states his last stress test and echocardiogram was a couple years ago he states they were normal. - Related Data Home Medications Medication Instructions Recorded Confirmed lisinopriL 40 mg PO BID 08/18/19 01/15/21 metFORMIN HCL [Glucophage] 1,000 mg PO BID 08/18/19 01/15/21 Acetaminophen Tab [Tylenol Tab] 500 mg PO Q8H PRN 01/15/21 01/15/21 Unknown Liver Compound Med 1 tab PO DAILY 01/15/21 01/15/21 Allergies Allergy/AdvReac Type Severity Reaction Status Date / Time No Known Allergies Allergy Verified 02/27/23 11:35 Review of Systems ROS Statement: Those systems with pertinent positive or pertinent negative responses have been documented in the HPI. ROS Other: All systems not noted in ROS Statement are negative. Past Medical History Past Medical History: Diabetes Mellitus, Hyperlipidemia, Hypertension, Liver Disease, Myocardial Infarction (SC), Renal Disease Additional Past Medical History / Comment(s): NIDDM type II, hepatitis C which pt states was treated and liver enzymes now normal, SC in 2008 d/t drug use per pt, chronic renal insufficiency, R sided kidney stone x2, peptic ulcer, migraines, sinusitis. HISTORY OF ETOH AND HEROIN USE. PT CLEAN FOR 4 YEARS Last Myocardial Infarction Date:: 2008 History of Any Multi-Drug Resistant Organisms: None Reported Past Surgical History: Cholecystectomy Additional Past Surgical History / Comment(s): Partial r apical lobectomy for bleb at age 18 yrs, 2002 repair ligament LFA after self injury, 2013 Exploratory laparotomy removal foreign body after self injury, EGD, cardiac cath in 2015, pain clinic procedures for back pain. Past Anesthesia/Blood Transfusion Reactions: No Reported Reaction Additional Past Anesthesia/Blood Transfusion Reaction / Comment(s): Pt states he has never received blood. Past Psychological History: Depression Smoking Status: Never smoker Past Alcohol Use History: None Reported Past Drug Use History: None Reported - Past Family History Father Family Medical History: COPD Additional Family Medical History / Comment(s): Father at 71 yrs of age. Mother Family Medical History: Cancer Additional Family Medical History / Comment(s): Mother had breast cancer with mets and of this at 67yrs of age. General Exam Limitations: no limitations General appearance: alert Head exam: Present: atraumatic, normocephalic, normal inspection Eye exam: Present: normal appearance, PERRL, EOMI. Absent: scleral icterus, conjunctival injection, periorbital swelling Respiratory exam: Present: normal lung sounds bilaterally. Absent: respiratory distress, wheezes, rales, rhonchi, stridor Cardiovascular Exam: Present: regular rate, normal rhythm, normal heart sounds. Absent: systolic murmur, diastolic murmur, rubs, gallop, clicks, JVD GI/Abdominal exam: Present: soft, normal bowel sounds. Absent: distended, tenderness, guarding, rebound, rigid Extremities exam: Present: normal inspection, full ROM, normal capillary refill Neurological exam: Present: alert Psychiatric exam: Present: normal affect, normal mood Skin exam: Present: warm, dry, intact, normal color. Absent: rash Course Vital Signs 07/12/23 07/12/23 07/12/23 20:28 22:35 23:39 Temperature 98.4 F Pulse Rate 70 65 Respiratory 18 18 Rate Blood Pressure 139/88 112/79 Blood Pressure 127/89 [Sitting] Blood Pressure 119/82 [Standing] Blood Pressure 125/79 [Supine] O2 Sat by Pulse 98 97 Oximetry 07/13/23 00:24 Temperature Pulse Rate 62 Respiratory 18 Rate Blood Pressure 133/95 Blood Pressure [Sitting] Blood Pressure [Standing] Blood Pressure [Supine] O2 Sat by Pulse 96 Oximetry Medical Decision Making - Medical Decision Making EKG taken at 21:46, sinus bradycardia, interpreted by myself sinus bradycardia, no ST elevation Ventricular rate 59, UT interval 198, QRS duration 107, QTC 372 Was pt. sent in by a medical professional or institution (, PA, DRUM SAW OPERATOR, urgent care, hospital, or jail...) When possible be specific @ -No Did you speak to anyone other than the patient for history (EMS, parent, family, police, friend...)? What history was obtained from this source @ -No Did you review nursing and triage notes (agree or disagree)? Why? @ -I reviewed and agree with nursing and triage notes Were old charts reviewed (outside hosp., previous admission, EMS record, old EKG, old radiological studies, urgent care reports/EKG's, jail records)? Report findings @Review previous echocardiogram and stress test in 2019 Differential Diagnosis (chest pain, altered mental status, abdominal pain women, abdominal pain men, vaginal bleeding, weakness, fever, dyspnea, syncope, headache, dizziness, GI bleed, back pain, seizure, CVA, palpatations, mental health)? @ -Differential Syncope: Valvular disease, hypertrophic cardiomyopathy, pulmonary embolism, tamponade, tachycardia, bradycardia, SC, hypovolemia, hemorrhage, dissection, anemia, intracranial hemorrhage, seizure, hypoglycemia, carbon monoxide poisoning, this is not meant to be an all-inclusive list. EKG interpreted by me (3pts min.). @ -As above X-rays interpreted by me (1pt min.). @ -No acute cardiopulmonary process CT interpreted by me (1pt min.). @ -None done U/S interpreted by me (1pt. min.). @ -None done What testing was considered but not performed or refused? (CT, X-rays, U/S, labs)? Why? @ -None What meds were considered but not given or refused? Why? @ -None Did you discuss the management of the patient with other professionals (professionals i.e. , EL, DRUM SAW OPERATOR, lab, RT, psych nurse, social media developer, set off press operator, teacher, aoc plans intelligence officer chief, case maker)? Give summary @ -No Was smoking cessation discussed for >3mins.? @ -[No] Was critical care preformed (if so, how long)? @ -[No] Were there social determinants of health that impacted care today? How? (Homelessness, low income, unemployed, alcoholism, drug addiction, transportation, low edu. Level, literacy, decrease access to med. care, assisted, rehab)? @ -[No] Was there de-escalation of care discussed even if they declined (Discuss DNR or withdrawal of care, Hospice)? DNR status @ -[No] What co-morbidities impacted this encounter? (DM, HTN, Smoking, COPD, CAD, Cancer, CVA, ARF, Chemo, Hep., AIDS, mental health diagnosis, sleep apnea, mo rbid obesity)? @ -[None] Was patient admitted / discharged? Hospital course, mention meds given and route, prescriptions, significant lab abnormalities, going to OR and other pertinent info. @ -57-year-old presenting for near syncopal episodes. Patient is well- appearing. Orthostatics are negative. EKG shows sinus bradycardia. Troponin a nd d-dimer within normal limits. Other laboratory studies are relatively unremarkable. X-ray interpreted by myself no acute cardiopulmonary process Patient given large fluid bolus he did have improvement of symptoms. He did not have any further near syncope or syncopal episodes. Patient stable medical condition for discharge. We discussed return parameters. Undiagnosed new problem with uncertain prognosis? @ -[No] Drug Therapy requiring intensive monitoring for toxicity (Heparin, Nitro, Insulin, Cardizem)? @ -[No] Were any procedures done? @ -[No] Diagnosis/symptom? @ -near syncope Acute, or Chronic, or Acute on Chronic? @ -acute Uncomplicated (without systemic symptoms) or Complicated (systemic symptoms)? @ -uncomplicated Side effects of treatment? @ -[No] Exacerbation, Progression, or Severe Exacerbation? @ -[No] Poses a threat to life or bodily function? How? (Chest pain, USA, SC, pneumonia, PE, COPD, DKA, ARF, appy, cholecystitis, CVA, Diverticulitis, Homicidal, Suicidal, threat to staff... and all critical care pts) @ -not currently Dr. Vanessa is my attending - Lab Data Result diagrams: 07/12/23 22:12 07/12/23 22:12 Lab Results 07/12/23 07/12/23 07/12/23 Range/Units 20:30 22:12 22:12 WBC 6.7 (3.8-10.6) k/uL RBC 5.11 (4.30-5.90) m/uL Hgb 15.8 (13.0-17.5) gm/dL Hct 46.1 (39.0-53.0) % MCV 90.3 (80.0-100.0) fL MCH 30.9 (25.0-35.0) pg MCHC 34.3 (31.0-37.0) g/dL RDW 12.9 (11.5-15.5) % Plt Count 114 L (150-450) k/uL MPV 9.1 Neutrophils % 64 % Lymphocytes % 29 % Monocytes % 4 % Eosinophils % 2 % Basophils % 0 % Neutrophils # 4.3 (1.3-7.7) k/uL Lymphocytes # 1.9 (1.0-4.8) k/uL Monocytes # 0.3 (0-1.0) k/uL Eosinophils # 0.1 (0-0.7) k/uL Basophils # 0.0 (0-0.2) k/uL PT 10.4 (9.0-12.0) sec INR 1.0 (<1.2) APTT 22.6 (22.0-30.0) sec D-Dimer (<0.60) mg/L FEU Sodium (137-145) mmol/L Potassium (3.5-5.1) mmol/L Chloride (98-107) mmol/L Carbon Dioxide (22-30) mmol/L Anion Gap mmol/L BUN (9-20) mg/dL Creatinine (0.66-1.25) mg/dL Est GFR (CKD-EPI)AfAm (>60 ml/min/1.73 sqM) Est GFR (CKD-EPI)NonAf (>60 ml/min/1.73 sqM) Glucose (74-99) mg/dL POC Glucose (mg/dL) 141 H (70-110) mg/dL POC Glu [employer] ID Barahona, Shae Calcium (8.4-10.2) mg/dL Magnesium (1.6-2.3) mg/dL Total Bilirubin (0.2-1.3) mg/dL AST (17-59) U/L ALT (4-49) U/L Alkaline Phosphatase (38-126) U/L Troponin I (0.000-0.034) ng/mL Total Protein (6.3-8.2) g/dL Albumin (3.5-5.0) g/dL Urine Color Urine Appearance (Clear) Urine pH (5.0-8.0) Ur Specific [place] (1.001-1.035) Urine Protein (Negative) Urine Glucose (UA) (Negative) Urine Ketones (Negative) Urine Blood (Negative) Urine Nitrite (Negative) Urine Bilirubin (Negative) Urine Urobilinogen (<2.0) mg/dL Ur Leukocyte Esterase (Negative) Coronavirus (PCR) (Not Detectd) 07/12/23 07/12/23 07/12/23 Range/Units 22:12 22:12 22:12 WBC (3.8-10.6) k/uL RBC (4.30-5.90) m/uL Hgb (13.0-17.5) gm/dL Hct (39.0-53.0) % MCV (80.0-100.0) fL MCH (25.0-35.0) pg MCHC (31.0-37.0) g/dL RDW (11.5-15.5) % Plt Count (150-450) k/uL MPV Neutrophils % % Lymphocytes % % Monocytes % % Eosinophils % % Basophils % % Neutrophils # (1.3-7.7) k/uL Lymphocytes # (1.0-4.8) k/uL Monocytes # (0-1.0) k/uL Eosinophils # (0-0.7) k/uL Basophils # (0-0.2) k/uL PT (9.0-12.0) sec INR (<1.2) APTT (22.0-30.0) sec D-Dimer 0.19 (<0.60) mg/L FEU Sodium 140 (137-145) mmol/L Potassium 4.1 (3.5-5.1) mmol/L Chloride 107 (98-107) mmol/L Carbon Dioxide 24 (22-30) mmol/L Anion Gap 9 mmol/L BUN 14 (9-20) mg/dL Creatinine 1.10 (0.66-1.25) mg/dL Est GFR (CKD-EPI)AfAm 86 (>60 ml/min/1.73 sqM) Est GFR (CKD-EPI)NonAf 74 (>60 ml/min/1.73 sqM) Glucose 84 (74-99) mg/dL POC Glucose (mg/dL) (70-110) mg/dL POC Glu [employer] ID Calcium 9.3 (8.4-10.2) mg/dL Magnesium 2.1 (1.6-2.3) mg/dL Total Bilirubin 0.6 (0.2-1.3) mg/dL AST 25 (17-59) U/L ALT 23 (4-49) U/L Alkaline Phosphatase 87 (38-126) U/L Troponin I <0.012 (0.000-0.034) ng/mL Total Protein 7.9 (6.3-8.2) g/dL Albumin 4.6 (3.5-5.0) g/dL Urine Color Urine Appearance (Clear) Urine pH (5.0-8.0) Ur Specific [place] (1.001-1.035) Urine Protein (Negative) Urine Glucose (UA) (Negative) Urine Ketones (Negative) Urine Blood (Negative) Urine Nitrite (Negative) Urine Bilirubin (Negative) Urine Urobilinogen (<2.0) mg/dL Ur Leukocyte Esterase (Negative) Coronavirus (PCR) (Not Detectd) 07/12/23 07/12/23 Range/Units 22:17 23:39 WBC (3.8-10.6) k/uL RBC (4.30-5.90) m/uL Hgb (13.0-17.5) gm/dL Hct (39.0-53.0) % MCV (80.0-100.0) fL MCH (25.0-35.0) pg MCHC (31.0-37.0) g/dL RDW (11.5-15.5) % Plt Count (150-450) k/uL MPV Neutrophils % % Lymphocytes % % Monocytes % % Eosinophils % % Basophils % % Neutrophils # (1.3-7.7) k/uL Lymphocytes # (1.0-4.8) k/uL Monocytes # (0-1.0) k/uL Eosinophils # (0-0.7) k/uL Basophils # (0-0.2) k/uL PT (9.0-12.0) sec INR (<1.2) APTT (22.0-30.0) sec D-Dimer (<0.60) mg/L FEU Sodium (137-145) mmol/L Potassium (3.5-5.1) mmol/L Chloride (98-107) mmol/L Carbon Dioxide (22-30) mmol/L Anion Gap mmol/L BUN (9-20) mg/dL Creatinine (0.66-1.25) mg/dL Est GFR (CKD-EPI)AfAm (>60 ml/min/1.73 sqM) Est GFR (CKD-EPI)NonAf (>60 ml/min/1.73 sqM) Glucose (74-99) mg/dL POC Glucose (mg/dL) (70-110) mg/dL POC Glu [employer] Bow[employer] ID Calcium (8.4-10.2) mg/dL Magnesium (1.6-2.3) mg/dL Total Bilirubin (0.2-1.3) mg/dL AST (17-59) U/L ALT (4-49) U/L Alkaline Phosphatase (38-126) U/L Troponin I (0.000-0.034) ng/mL Total Protein (6.3-8.2) g/dL Albumin (3.5-5.0) g/dL Urine Color Colorless Urine Appearance Clear (Clear) Urine pH 5.5 (5.0-8.0) Ur Specific [place] 1.027 (1.001-1.035) Urine Protein Negative (Negative) Urine Glucose (UA) 4+ H (Negative) Urine Ketones Negative (Negative) Urine Blood Negative (Negative) Urine Nitrite Negative (Negative) Urine Bilirubin Negative (Negative) Urine Urobilinogen <2.0 (<2.0) mg/dL Ur Leukocyte Esterase Negative (Negative) Coronavirus (PCR) Not Detected (Not Detectd) Disposition Clinical Impression: Near syncope Disposition: HOME SELF-CARE Condition: Good Instructions (If sedation given, give patient instructions): Syncope (ED) Additional Instructions: Please follow-up with your primary care provider in 1-2 days. Return to the emergency department if you experience new, concerning, or worsening symptoms. Is patient prescribed a controlled substance at d/c from ED?: No Referrals: None,Stated [REFERRING] - 1-2 days
[2023-07-12 22:43] LABS: Basophils % (A) 0 %; Eosinophils # (A) 0.1 k/uL (0-0.7); Eosinophils % (A) 2 %; HCT 46.1 % (39.0-53.0); HGB 15.8 gm/dL (13.0-17.5); Lymphocytes # (A) 1.9 k/uL (1.0-4.8); Lymphocytes % (A) 29 %; MCH 30.9 pg (25.0-35.0); MCHC 34.3 g/dL (31.0-37.0); MCV 90.3 fL (80.0-100.0); Mean Platelet Volume 9.1; Monocytes # (A) 0.3 k/uL (0-1.0); Monocytes % (A) 4 %; Neutrophils # (A) 4.3 k/uL (1.3-7.7); Neutrophils % (A) 64 %; Platelet Count 114 k/uL (150-450); RBC 5.11 m/uL (4.30-5.90); RDW 12.9 % (11.5-15.5); WBC 6.7 k/uL (3.8-10.6)
[2023-07-12 22:45] LABS: Appearance,Urine Clear (Clear); Bilirubin,Urine Negative (Negative); Blood,Urine Negative (Negative); Color,Urine Colorless; Glucose,Urine (UA) 4+ (Negative); Ketones,Urine Negative (Negative); Leukocyte Esterase,Urine Negative (Negative); Nitrite,Urine Negative (Negative); PH, Urine 5.5 (5.0-8.0); Protein,Urine Negative (Negative); Specific Gravity,Urine 1.027 (1.001-1.035); Urobilinogen,Urine <2.0 mg/dL (<2.0)
[2023-07-12 22:49] LABS: Prothrombin Time 10.4 sec (9.0-12.0)
[2023-07-12 22:50] LABS: Partial Thromboplastin Time 22.6 sec (22.0-30.0)
[2023-07-12 22:53] LABS: ALT 23 U/L (4-49); AST 25 U/L (17-59); African American GFR (CKD) 86 (>60 ml/min/1.73 sqM); Albumin 4.6 g/dL (3.5-5.0); Alkaline Phosphatase 87 U/L (38-126); Anion Gap 9 mmol/L; Blood Urea Nitrogen 14 mg/dL (9-20); Calcium 9.3 mg/dL (8.4-10.2); Carbon Dioxide 24 mmol/L (22-30); Chloride 107 mmol/L (98-107); Glucose 84 mg/dL (74-99); Magnesium 2.1 mg/dL (1.6-2.3); Non-African American GFR(CKD) 74 (>60 ml/min/1.73 sqM); Potassium 4.1 mmol/L (3.5-5.1); Sodium 140 mmol/L (137-145); Total Bilirubin 0.6 mg/dL (0.2-1.3); Total Protein 7.9 g/dL (6.3-8.2)
--- NOTE | 2023-07-12 23:49 | XR ---
EXAM: XR Chest, 2 Views CLINICAL HISTORY: ITS.REASON XR Reason: syncope TECHNIQUE: Frontal and lateral views of the chest. COMPARISON: No relevant prior studies available. FINDINGS: Lungs: Unremarkable. No consolidation. Pleural space: Unremarkable. No pneumothorax. Heart: Unremarkable. No cardiomegaly. Mediastinum: Unremarkable. Bones/joints: Unremarkable. Other findings: Cholecystectomy clips. IMPRESSION: No acute findings in the chest.
[2023-07-13 00:36] VITALS: BP 133/95; PULSE 62
== END 2023-07-13 00:33 | disposition home or self-care (01) ==
LOC: EC 20:26
DX: R55 Syncope and collapse (principal); R00.1 Bradycardia, unspecified; E11.22 Type 2 diabetes mellitus with diabetic chronic kidney disease; I12.9 Hypertensive chronic kidney disease with stage 1 through stage 4 chronic kidney disease, or unspecified chronic kidney disease; N18.9 Chronic kidney disease, unspecified; I25.2 Old myocardial infarction; Z86.59 Personal history of other mental and behavioral disorders; Z79.84 Long term (current) use of oral hypoglycemic drugs; Z79.899 Other long term (current) drug therapy; Z90.49 Acquired absence of other specified parts of digestive tract; Z20.822 Contact with and (suspected) exposure to COVID-19
CPT/HCPCS: 36415; 71046; 80053; 81003; 83735; 84484; 85025; 85379; 85610; 85730; 87635; 93005; 96360; 96361; 99284

== ENCOUNTER → 2023-07-22 | Outpatient (CLI) | payer OTHER ==
--- NOTE | 2023-07-22 14:35 | US ---
EXAMINATION TYPE: US carotid duplex BILAT DATE OF EXAM: 07/22/2023 COMPARISON: NONE CLINICAL INDICATION: Male, 58 years old with history of R55 SYNCOPE AND COLLAPSE; TECHNIQUE: Carotid duplex ultrasound examination. Indirect Doppler criteria was utilized. FINDINGS: EXAM MEASUREMENTS: RIGHT: Peak Systolic Velocity (PSV) cm/sec ----- Right CCA: 71.5 ----- Right ICA: 68.0 ----- Right ECA: 78.6 ICA/CCA ratio: 1.0 RIGHT: End Diastole cm/sec ----- Right CCA: 16.2 ----- Right ICA: 26.7 ----- Right ECA: 9.7 LEFT: Peak Systolic Velocity (PSV) cm/sec ----- Left CCA: 69.6 ----- Left ICA: 68.7 ----- Left ECA: 88.4 ICA/CCA ratio: 1.0 LEFT: End Diastole cm/sec ----- Left CCA: 16.4 ----- Left ICA: 24.8 ----- Left ECA: 11.6 VERTEBRALS (direction of flow): Right Vertebral: Antegrade Left Vertebral: Antegrade Rhythm: Normal No significant stenosis IMPRESSION: No ultrasound evidence for hemodynamically significant stenosis of the bilateral visualized carotid a rterial systems. Criteria for Assigning % of Stenosis / Diameter reduction (Estimation based on the indirect measurements of the internal carotid artery velocities (ICA PSV). 1. Normal (no stenosis)=ICA PSV < 125 cm/s: ratio < 2.0: ICA EDV<40 cm/s. 2. Less than 50% stenosis=ICA PSV < 125 cm/s: ratio < 2.0: ICA EDV<40 cm/s. 3. 50 to 69% stenosis=ICA PSV of 125 to 230 cm/s: ration 2.0 ? 4.0: ICA EDV 40-100 cm/s. 4. Greater than 70% stenosis to near occlusion= ICA PSV > 230 cm/s: ratio > 4.0: ICA EDV > 100 cm/s. 5. Near occlusion= ICA PSV velocities may be low or undetectable: variable ratio and ICA EDV. 6. Total occlusion=unable to detect flow.
== END | disposition home or self-care (01) ==
LOC: RADUSWWP 13:37
PROVIDERS: ATTEND Internal Medicine Geriatric Medicine
DX: R55 Syncope and collapse (principal)
CPT/HCPCS: 93306; 93880

== ENCOUNTER → 2023-07-25 | Outpatient (CLI) | payer OTHER ==
--- NOTE | 2023-07-25 08:44 | US ---
EXAMINATION TYPE: US liver DATE OF EXAM: 07/25/2023 COMPARISON: NONE CLINICAL INDICATION: Male, 58 years old with history of K74.60 UNSPECIFIED CIRRHOSIS OF LIVER; cirrho sis, cholecystectomy TECHNIQUE: Multiple sonographic images of the right upper quadrant are obtained. FINDINGS: EXAM MEASUREMENTS: Liver Length: 17.5 cm Gallbladder Wall: Surgically absent CBD: 0.6 cm Right Kidney: 11.2 x 4.4 x 5.1 cm Pancreas: Obscured by bowel gas Liver: heterogeneous Gallbladder: Surgically absent Evidence for sonographic Torres's sign: no CBD: wnl Right Kidney: possible stone lower pole = 0.4cm IMPRESSION: 1. 4 mm calculus lower pole right kidney. 2. Mild hepatic steatosis.
== END | disposition home or self-care (01) ==
LOC: RADUSWWP 07:49
PROVIDERS: ATTEND Internal Medicine Gastroenterology
DX: K74.60 Unspecified cirrhosis of liver (principal); K76.0 Fatty (change of) liver, not elsewhere classified; N20.0 Calculus of kidney
CPT/HCPCS: 76705

== ENCOUNTER → 2023-09-02 | Outpatient (CLI) | payer OTHER ==
--- NOTE | 2023-09-02 09:17 | US ---
EXAMINATION TYPE: US liver DATE OF EXAM: 09/02/2023 COMPARISON: US 2022 CLINICAL INDICATION: Male, 58 years old with history of K74.60 UNSPECIFIED CIRRHOSIS OF LIVER; TECHNIQUE: Multiple sonographic images of the right upper quadrant are obtained. FINDINGS: EXAM MEASUREMENTS: Liver Length: 16.9 cm CBD: 0.7 cm Right Kidney: 11.2 x 4.4 x 4.5 cm Pancreas: obscured by overlying midline bowel gas Liver: attenuating, heterogeneous Gallbladder: surgically absent Evidence for sonographic Torres's sign: no CBD: wnl Right Kidney: Possible stone seen on previous study not seen on today's exam IMPRESSION: 1. Hepatic cirrhosis without suspicious observation. 2. The gallbladder surgically absent.
== END | disposition home or self-care (01) ==
LOC: RADUSWWP 07:31
PROVIDERS: ATTEND Internal Medicine Gastroenterology
DX: K74.60 Unspecified cirrhosis of liver (principal); Z90.49 Acquired absence of other specified parts of digestive tract
CPT/HCPCS: 76705

== ENCOUNTER 2024-04-25 17:15 | Emergency (ER) | payer OTHER ==
--- NOTE | 2024-04-25 17:20 | ED ---
Chest Pain HPI - General Chief Complaint: Chest Pain Stated Complaint: Chest pain Time Seen by Provider: 04/25/24 17:19 Source: patient, RN notes reviewed, old records reviewed Mode of arrival: ambulatory Limitations: no limitations - History of Present Illness Initial Comments: This is 58-year-old male to ER for evaluation of weakness chest pain shortness of breath cough body aches pains not feeling well warmth. Patient has persistent symptoms been going on for a few days worse today patient is no known sick contacts no travel history no other complaints MD Complaint: chest pain -: days(s) Onset: during rest, during exertion Pain Location: substernal, left chest Pain Radiation: none Severity: moderate Severity scale (1-10): 4 Quality: tightness, aching Consistency: constant Improves With: nothing, nitroglycerin Worsens With: nothing Other Symptoms: palpitations Treatments Prior to Arrival: none - Related Data Home Medications Medication Instructions Recorded Confirmed lisinopriL 40 mg PO BID 08/18/19 01/15/21 metFORMIN HCL [Glucophage] 1,000 mg PO BID 08/18/19 01/15/21 Acetaminophen Tab [Tylenol Tab] 500 mg PO Q8H PRN 01/15/21 01/15/21 Unknown Liver Compound Med 1 tab PO DAILY 01/15/21 01/15/21 Previous Rx's Medication Instructions Recorded Amoxic-Pot Clav 875-125Mg 1 tab PO Q12HR #20 tablet 04/25/24 [Augmentin 875-125] Azithromycin [Zithromax] 500 mg PO DAILY #5 tab 04/25/24 Allergies Allergy/AdvReac Type Severity Reaction Status Date / Time codeine Allergy Rash/Hives Verified 04/25/24 17:18 Review of Systems ROS Statement: Those systems with pertinent positive or pertinent negative responses have been documented in the HPI. ROS Other: All systems not noted in ROS Statement are negative. EKG Findings - EKG Comments: EKG Findings:: EKG is sinus 89 HI 168 QRS 96 QTc 363 - EKG Results: EKG: interpreted by LOUIE Past Medical History Past Medical History: Diabetes Mellitus, Hyperlipidemia, Hypertension, Liver Disease, Myocardial Infarction (LA), Renal Disease Additional Past Medical History / Comment(s): NIDDM type II, hepatitis C which pt states was treated and liver enzymes now normal, LA in 2008 d/t drug use per pt, chronic renal insufficiency, R sided kidney stone x2, peptic ulcer, migraines, sinusitis. HISTORY OF ETOH AND HEROIN USE. PT CLEAN FOR 4 YEARS Last Myocardial Infarction Date:: 2008 History of Any Multi-Drug Resistant Organisms: None Reported Past Surgical History: Cholecystectomy Additional Past Surgical History / Comment(s): Partial r apical lobectomy for bleb at age 18 yrs, 2002 repair ligament LFA after self injury, 2013 Exploratory laparotomy removal foreign body after self injury, EGD, cardiac cath in 2014, pain clinic procedures for back pain. Past Anesthesia/Blood Transfusion Reactions: No Reported Reaction Additional Past Anesthesia/Blood Transfusion Reaction / Comment(s): Pt states he has never received blood. Past Psychological History: Depression Smoking Status: Never smoker Past Alcohol Use History: None Reported Past Drug Use History: None Reported - Past Family History Father Family Medical History: COPD Additional Family Medical History / Comment(s): Father at 71 yrs of age. Mother Family Medical History: Cancer Additional Family Medical History / Comment(s): Mother had breast cancer with me ts and of this at 67yrs of age. General Exam Limitations: no limitations General appearance: alert, in no apparent distress Head exam: Present: atraumatic, normocephalic, normal inspection Eye exam: Present: normal appearance, PERRL, EOMI. Absent: scleral icterus, conjunctival injection, periorbital swelling ENT exam: Present: normal exam, mucous membranes moist Neck exam: Present: normal inspection. Absent: tenderness, meningismus, lymphadenopathy Respiratory exam: Present: normal lung sounds bilaterally. Absent: respiratory distress, wheezes, rales, rhonchi, stridor Cardiovascular Exam: Present: regular rate, normal rhythm, normal heart sounds. Absent: systolic murmur, diastolic murmur, rubs, gallop, clicks GI/Abdominal exam: Present: soft, normal bowel sounds. Absent: distended, tenderness, guarding, rebound, rigid Extremities exam: Present: normal inspection, full ROM, normal capillary refill. Absent: tenderness, pedal edema, joint swelling, calf tenderness Back exam: Present: normal inspection Neurological exam: Present: alert, oriented X3, CN II-XII intact Psychiatric exam: Present: normal affect, normal mood Skin exam: Present: warm, dry, intact, normal color. Absent: rash Course Vital Signs 04/25/24 04/25/24 04/25/24 17:16 18:39 20:56 Temperature 98.4 F 103.3 F H 99.7 F H Pulse Rate 94 79 75 Respiratory 22 18 18 Rate Blood Pressure 175/103 141/88 121/81 O2 Sat by Pulse 97 94 L 95 Oximetry 04/25/24 22:05 Temperature 99.5 F Pulse Rate 69 Respiratory 18 Rate Blood Pressure 110/72 O2 Sat by Pulse 92 L Oximetry - Reevaluation(s) Reevaluation #1: 04/25/24 19:25 Medical records reviewed Reevaluation #2: 04/25/24 19:25 Patient symptoms improved Reevaluation #3: 04/25/24 19:25 Patient informed of results and questions answered Reevaluation #4: Was pt. sent in by a medical professional or institution (EL Rondon, SENIOR APPLICATION PROGRAMMER, urgent care, hospital, or fdc...) When possible be specific @ -no Did you speak to anyone other than the patient for history (EMS, parent, family, police, friend...)? What history was obtained from this source @ -no Did you review nursing and triage notes (agree or disagree)? Why? @ -agree Are old charts reviewed (outside hosp., previous admission, EMS record, old EKG, old radiological studies, urgent care reports/EKG's, fdc records)? Report findings @ -yes Differential Diagnosis (chest pain, altered mental status, abdominal pain women, abdominal pain men, vaginal bleeding, weakness, fever, dyspnea, syncope, headache, dizziness, GI bleed, back pain, seizure, CVA, palpatations, mental health, musculoskeletal)? @ -prior EKG interpreted by me (3pts min.). @ -yes X-rays interpreted by me (1pt min.). @ -yes positive for pneumonia for fever CT interpreted by me (1pt min.). @ -no U/S interpreted by me (1pt. min.). @ -no What testing was considered but not performed or refused? (CT, X-rays, U/S, labs)? Why? @ -none What meds were considered but not given or refused? Why? @ -none Did you discuss the management of the patient with other professionals (professionals i.e. EL Rondon, SENIOR APPLICATION PROGRAMMER, lab, RT, psych nurse, social staff worker, computer laboratory technician, teacher, chief human resources officer, telephonic case manager)? Give summary @ -no Was smoking cessation discussed for >3mins.? @ -no Was critical care preformed (if so, how long)? @ -no Were there social determinants of health that impacted care today? How? (Homelessness, low income, unemployed, alcoholism, drug addiction, transportation, low edu. Level, literacy, decrease access to med. care, group home, rehab)? @ -none Was there de-escalation of care discussed even if they declined (Discuss DNR or withdrawal of care, Hospice)? DNR status @ -no What co-morbidities impacted this encounter? (DM, HTN, Smoking, COPD, CAD, Cancer, CVA, ARF, Chemo, Hep., AIDS, mental health diagnosis, sleep apnea, morbid obesity)? @ -none Was patient admitted / discharged? Hospital course, mention meds given and route, prescriptions, significant lab abnormalities, going to OR and other pertinent info. @ - 58 male to ER without feeling well. Patient does have fever with pneumonia here in the ER feels improved and can be discharged home Discharge Undiagnosed new problem with uncertain prognosis? @ -no Drug Therapy requiring intensive monitoring for toxicity (Heparin, Nitro, Insulin, Cardizem)? @ -no Were any procedures done? @ -no Diagnosis/symptom? @ -fever with pneumonia Acute, or Chronic, or Acute on Chronic? @ -Acute Uncomplicated (without systemic symptoms) or Complicated (systemic symptoms)? @ -Complicated Side effects of treatment? @ -no Exacerbation, Progression, or Severe Exacerbation? @ -exacerbation Poses a threat to life or bodily function? How? (Chest pain, USA, LA, pneumonia, PE, COPD, DKA, ARF, appy, cholecystitis, CVA, Diverticulitis, Homicidal, Suicidal, threat to staff... and all critical care pts) @ -yes infection Reevaluation #5: Differential Chest Pain: Stable Angina, Unstable Angina, STEMI, NSTEMI Aortic Dissection, Pneumothorax, Musculoskeletal, Esophageal Spasm GERD, Cholecystitis, Pancreatitis, Zoster, this is not meant to be an all-inclusive list. Chest Pain MDM - MDM 58 male to ER without feeling well. Patient does have fever with pneumonia here in the ER feels improved and can be discharged home Disposition Clinical Impression: Fever, Pneumonia, Acute anxiety Disposition: ADMITTED IP TO THIS HOSP Condition: Fair Prescriptions: Amoxic-Pot Clav 875-125Mg [Augmentin 875-125] 1 tab PO Q12HR #20 tablet Azithromycin [Zithromax] 500 mg PO DAILY #5 tab Is patient prescribed a controlled substance at d/c from ED?: No Referrals: None,Stated [REFERRING] - 1-2 days Time of Disposition: 22:00
[2024-04-25 18:00] LABS: Basophils % (A) 0 %; Eosinophils % (A) 1 %; HCT 42.9 % (39.0-53.0); HGB 14.5 gm/dL (13.0-17.5); Lymphocytes # (A) 0.9 k/uL (1.0-4.8); Lymphocytes % (A) 15 %; MCH 31.1 pg (25.0-35.0); MCHC 33.8 g/dL (31.0-37.0); Mean Platelet Volume 8.4; Monocytes # (A) 0.4 k/uL (0-1.0); Monocytes % (A) 6 %; Neutrophils # (A) 4.6 k/uL (1.3-7.7); Neutrophils % (A) 76 %; RBC 4.66 m/uL (4.30-5.90); RDW 13.2 % (11.5-15.5); WBC 6.1 k/uL (3.8-10.6)
--- NOTE | 2024-04-25 18:00 | XR ---
EXAMINATION TYPE: XR chest 2V DATE OF EXAM: 04/25/2024 5:54 PM CLINICAL INDICATION:Male, 58 years old with history of Chest Pain; COMPARISON: 07/12/2020 TECHNIQUE: XR chest 2V Frontal view of the chest. FINDINGS: Lungs/Pleura: There is no evidence of pleural effusion, focal consolidation, or pneumothorax. Pulmonary vascularity: Unremarkable. Heart/mediastinum: Cardiomediastinal silhouette is unremarkable. Musculoskeletal: No acute osseous pathology. IMPRESSION: Left lower lobe airspace disease.
[2024-04-25 18:15] LABS: Partial Thromboplastin Time 23.3 sec (22.0-30.0)
[2024-04-25 18:28] LABS: ALT 18 U/L (4-49); AST 27 U/L (17-59); African American GFR (CKD) >90 (>60 ml/min/1.73 sqM); Albumin 4.4 g/dL (3.5-5.0); Alkaline Phosphatase 100 U/L (38-126); Anion Gap 9 mmol/L; Blood Urea Nitrogen 11 mg/dL (9-20); Calcium 8.9 mg/dL (8.4-10.2); Carbon Dioxide 21 mmol/L (22-30); Chloride 108 mmol/L (98-107); Glucose 148 mg/dL (74-99); Lipase 153 U/L (23-300); Magnesium 1.6 mg/dL (1.6-2.3); Non-African American GFR(CKD) 88 (>60 ml/min/1.73 sqM); Potassium 3.7 mmol/L (3.5-5.1); Sodium 138 mmol/L (137-145); Total Protein 7.2 g/dL (6.3-8.2)
[2024-04-25 18:38] LABS: NT-Pro-B-Type Natriuretic Pept 335 pg/mL
[2024-04-25 18:41] LABS: Platelet Count 93 k/uL (150-450)
[2024-04-25 18:42] VITALS: RESP 18
[2024-04-25 18:42] LABS: RBC Morphology Normal
[2024-04-25] MEDS ORDERED: IPRATROPIUM-ALBUTEROL 3 ML NEB INHALATION PRN (18:51)
[2024-04-25] MEDS ORDERED: PNEUMONIA PROTOCOL UTILIZED 1 EACH MISC PO PRN (18:51)
[2024-04-25] MEDS: SODIUM CHLORIDE 0.9% 1,000 ML IV SCH (19:20)
[2024-04-25] MEDS: ACETAMINOPHEN IV (For NPO) 1,000 MG in EMPTY BAG 1 BAG IVPB STA (19:21)
[2024-04-25] MEDS: AZITHROMYCIN 500 MG in SODIUM CHLORIDE 0.9% 250 ML IVPB STA (19:24)
[2024-04-25] MEDS: IBUPROFEN IV 800 MG in SODIUM CHLORIDE 0.9% 250 ML IV ONE (19:25)
[2024-04-25 22:08] VITALS: BP 110/72; PULSE 69; TEMP 99.5
[2024-04-26] MEDS ORDERED: AZITHROMYCIN 500 MG in SODIUM CHLORIDE 0.9% 250 ML IVPB SCH (09:00)
== END 2024-04-25 22:05 | disposition other institution (70) ==
LOC: EC 17:15 → UNDOADMIN 18:57 → 5NMEDONC 18:57 → EC 22:05
DX: J18.9 Pneumonia, unspecified organism (principal); F41.9 Anxiety disorder, unspecified; Z88.5 Allergy status to narcotic agent
CPT/HCPCS: 36415; 93005; 83880; 80053; 83690; 83735; 84484; 85025; 85610; 85730; 87040; 71046; 99285; 96365; 96366 ×2; 96368; J0456; J0696; J0131; J1741

== ENCOUNTER → 2024-05-03 | Outpatient (CLI) | payer OTHER ==
[2024-05-03 14:20] LABS: African American GFR (CKD) >90 (>60 ml/min/1.73 sqM); Blood Urea Nitrogen 11 mg/dL (9-20); Non-African American GFR(CKD) 84 (>60 ml/min/1.73 sqM)
--- NOTE | 2024-05-03 15:31 | CT ---
EXAMINATION TYPE: CT chest w con DATE OF EXAM: 05/03/2024 COMPARISON: None HISTORY: hemoptysis CT DLP: 702 mGycm Automated exposure control for dose reduction was used. TECHNIQUE: CT scan of the chest is performed with IV Contrast, patient injected with 100 mL of Isovue 300. MIP Images are created on CT scanner and reviewed. 3D reconstructed images are created on an independent workstation and reviewed. FINDINGS: There is a focal area of abnormal reticular density in the left lower lobe with some mild groundglass opacity. The finding suggests an infectious process but neoplasm is not excluded and short-term foll ow-up to resolution is recommended. There is no pleural effusion or pneumothorax. The great vessels the chest are normal with no mediastinal, hilar or axillary adenopathy. Limited scanning through the abdomen reveals mild splenomegaly. There is surgical absence of the gall bladder. There are no adrenal masses. No focal osseous lesions are seen. IMPRESSION: 1. Nonspecific focal reticular opacity and mild groundglass opacity left lower lobe. Possibly infecti ous process but neoplasm not excluded and short-term follow-up to resolution is recommended. 2. Mild splenomegaly. Follow-up recommendations for incidental pulmonary nodules are per [facility]?s [employer] [place] [employer] or [employer] [place] [employer].
== END | disposition home or self-care (01) ==
LOC: RADCTMAIN 13:37
PROVIDERS: ATTEND Internal Medicine Geriatric Medicine
DX: R04.2 Hemoptysis (principal); R16.1 Splenomegaly, not elsewhere classified
CPT/HCPCS: 82565; 84520; 71260; 36415; Q9967

== ENCOUNTER → 2024-07-05 | Outpatient (CLI) | payer OTHER ==
--- NOTE | 2024-07-05 18:13 | US ---
EXAMINATION TYPE: US liver DATE OF EXAM: 07/05/2024 COMPARISON: NONE CLINICAL INDICATION: Male, 58 years old with history of K74.60 Cirrohosis of the Liver; cirrhosis. ch olecystectomy TECHNIQUE: Multiple sonographic images of the right upper quadrant are obtained. FINDINGS: EXAM MEASUREMENTS: Liver Length: 16.0 cm Gallbladder Wall: Surgically absent CBD: 0.7 cm Right Kidney: 11.9 x 4.8 x 4.8 cm LEAN MANAGER NOTES:*Limitations due to large amount of overlying bowel gas Pancreas: Obscured by bowel gas Liver: attenuating, heterogeneous Gallbladder: Surgically absent Evidence for sonographic Torres's sign: no CBD: wnl Right Kidney: no evidence of hydronephrosis IMPRESSION: Hepatic steatosis [facility], , 07/05/2024 6:11 PM
== END | disposition home or self-care (01) ==
LOC: RADUSWWP 07:00
PROVIDERS: ATTEND Internal Medicine Gastroenterology
DX: K74.60 Unspecified cirrhosis of liver
CPT/HCPCS: 76705

== ENCOUNTER → 2024-07-26 | Outpatient (CLI) | payer OTHER ==
[2024-07-26 10:15] LABS: Basophils # (A) 0.01 X 10*3/uL (0.00-0.10); Basophils % (A) 0.2 %; Eosinophils # (A) 0.16 X 10*3/uL (0.04-0.35); Eosinophils % (A) 3.2 %; HCT 43.6 % (39.6-50.0); HGB 15.1 g/dL (13.0-17.0); Lymphocytes # (A) 1.71 X 10*3/uL (0.90-5.00); Lymphocytes % (A) 33.9 %; MCH 30.1 pg (27.0-32.0); MCHC 34.6 g/dL (32.0-37.0); Mean Platelet Volume 11.1 FL (9.5-12.2); Monocytes # (A) 0.27 X 10*3/uL (0.20-1.00); Monocytes % (A) 5.3 %; NRBC Per 100 WBC 0 X 10*3/uL (0.00-0.01); Neutrophils # (A) 2.89 X 10*3/uL (1.80-7.70); Neutrophils % (A) 57.2 %; Platelet Count 114 X 10*3/uL (140-440); RBC 5.01 X 10*6/uL (4.40-5.60); RDW 13.1 % (11.5-14.5); WBC 5.05 X 10*3/uL (4.50-10.00)
[2024-07-26 10:31] LABS: ALT 20 U/L (10-49); AST 27 U/L (14-35); Albumin 4.5 g/dL (3.8-4.9); Alkaline Phosphatase 107 U/L (41-126); Blood Urea Nitrogen 8.7 mg/dL (9.0-27.0); Carbon Dioxide 24.7 mmol/L (21.6-31.8); Chloride 107 mmol/L (96-109); Globulin 2.5 g/dL (1.6-3.3); Glucose 137 mg/dL (70-110); Potassium 4.1 mmol/L (3.5-5.5); Sodium 142 mmol/L (135-145); Total Bilirubin 0.6 mg/dL (0.3-1.2)
== END | disposition home or self-care (01) ==
LOC: LABWHC1 07:30
PROVIDERS: ATTEND Internal Medicine Gastroenterology
DX: K74.60 Unspecified cirrhosis of liver (principal)
CPT/HCPCS: 36415; 80053; 82105; 85025

== ENCOUNTER → 2024-09-06 | Outpatient (CLI) | payer OTHER ==
[2024-09-06 12:09] LABS: African American GFR (CKD) >90 (>60 ml/min/1.73 sqM); Blood Urea Nitrogen 13 mg/dL (9-20); Non-African American GFR(CKD) 85 (>60 ml/min/1.73 sqM)
--- NOTE | 2024-09-06 13:25 | CT ---
EXAMINATION TYPE: CT chest w con CT DLP: 396.50 mGycm, Automated exposure control for dose reduction was used. DATE OF EXAM: 09/06/2024 12:47 PM COMPARISON: CT chest 05/03/2024 CLINICAL INDICATION:Male, 59 years old with history of R91.8 OTHER NONSPECIFIC ABNORMAL FINDING OF STEPHEN NG F; PHH, ABNORMAL FINDINGS OF LUNG DE LEÓN TECHNIQUE: Multiple axial images were obtained through the chest following the administration of 100 cc of Isovue 300. . Coronal and sagittal reformats reviewed. FINDINGS: LUNGS/ PLEURA: Minimal biapical pleural parenchyma scarring. Left apical linear calcified pleural shmuel que. No pleural effusion, pneumothorax, focal consolidation. Resolution pre-CT demonstrated right lo wer lobe patchy reticular opacities. No new suspicious pulmonary nodule or mass. AIRWAY: Patent and unremarkable.. HEART: Size within normal limits.No pericardial effusion. MEDIASTINUM: No evidence of adenopathy. VASCULATURE: No aortic aneurysm. MUSCULOSKELETAL: No acute osseous abnormalities. Remote right-sided rib fractures. SOFT TISSUES/LYMPH NODES: Unremarkable. LOWER NECK: No significant findings. UPPER ABDOMEN: Surface nodularity to the liver consistent with known cirrhosis. Gallbladder surgicall y absent. Splenic calcified granuloma. Enlarged spleen measuring up to 14.2 cm in AP dimension. Small nonobstructive bilateral renal calculi. IMPRESSION: 1. Resolution of previously demonstrated left lower lobe reticular groundglass opacities consistent with resolved infectious/inflammatory process. 2. Hepatic cirrhosis. 3. Nonobstructive bilateral renal calculi. 4. Splenomegaly. [facility], , 09/06/2024 1:22 PM
== END | disposition home or self-care (01) ==
LOC: RADCTMAIN 11:12
PROVIDERS: ATTEND Internal Medicine Geriatric Medicine
DX: R91.8 Other nonspecific abnormal finding of lung field (principal); K74.60 Unspecified cirrhosis of liver; N20.0 Calculus of kidney; R16.0 Hepatomegaly, not elsewhere classified
CPT/HCPCS: 82565; 84520; 71260; 36415; Q9967

== ENCOUNTER → 2025-01-31 | Outpatient (CLI) | payer OTHER ==
--- NOTE | 2025-01-31 15:02 | US ---
EXAMINATION TYPE: US liver DATE OF EXAM: 01/31/2025 COMPARISON: US 2023 CLINICAL INDICATION: Male, 59 years old with history of [id number] CIRRHOSIS OF LIVER; TECHNIQUE: Grayscale and color Doppler imaging of the right upper quadrant was performed. FINDINGS: EXAM MEASUREMENTS: Liver Length: 16.4 cm CBD: 0.9 cm Right Kidney: 11.3 x 4.6 x 5.7 cm Pancreas: obscured by overlying midline bowel gas Liver: course echotexture with nodular contour. No suspicious observations. Gallbladder: surgically absent Evidence for sonographic Torres's sign: no CBD: visualized portions wnl, limited by overlying bowel gas Right Kidney: wnl IMPRESSION: 1. No evidence for acute process. 2. Nodular contour to liver suggestive of hepatic cirrhosis. [facility], , 01/31/2025 2:59 PM
[2025-01-31 18:32] LABS: Basophils # (A) 0.01 X 10*3/uL (0.00-0.10); Basophils % (A) 0.2 %; Eosinophils # (A) 0.11 X 10*3/uL (0.04-0.35); Eosinophils % (A) 1.8 %; HCT 42.5 % (39.6-50.0); HGB 14.5 g/dL (13.0-17.0); Lymphocytes # (A) 1.78 X 10*3/uL (0.90-5.00); MCH 29.8 pg (27.0-32.0); MCHC 34.1 g/dL (32.0-37.0); MCV 87.3 FL (80.0-97.0); Mean Platelet Volume 11.3 FL (9.5-12.2); Monocytes # (A) 0.28 X 10*3/uL (0.20-1.00); Monocytes % (A) 4.6 %; NRBC Per 100 WBC 0 X 10*3/uL (0.00-0.01); Neutrophils # (A) 3.95 X 10*3/uL (1.80-7.70); Neutrophils % (A) 64.2 %; Platelet Count 121 X 10*3/uL (140-440); RBC 4.87 X 10*6/uL (4.40-5.60); RDW 12.9 % (11.5-14.5); WBC 6.14 X 10*3/uL (4.50-10.00)
[2025-01-31 18:55] LABS: ALT 22 U/L (10-49); AST 23 U/L (14-35); Albumin 4.6 g/dL (3.8-4.9); Albumin/Globulin Ratio 1.84 Ratio (1.60-3.17); Alkaline Phosphatase 106 U/L (41-126); Blood Urea Nitrogen 13.5 mg/dL (9.0-27.0); Calcium 9.2 mg/dL (8.7-10.3); Carbon Dioxide 22.9 mmol/L (21.6-31.8); Chloride 107 mmol/L (96-109); Globulin 2.5 g/dL (1.6-3.3); Glucose 105 mg/dL (70-110); Potassium 4.3 mmol/L (3.5-5.5); Sodium 141 mmol/L (135-145); Total Bilirubin 0.7 mg/dL (0.3-1.2); Total Protein 7.1 g/dL (6.2-8.2)
== END | disposition home or self-care (01) ==
LOC: RADUSWWP 14:19
PROVIDERS: ATTEND Internal Medicine Gastroenterology
DX: K74.60 Unspecified cirrhosis of liver (principal)
CPT/HCPCS: 76705; 80053; 82105; 85025